=== PATIENT | male | born 1980 | race Caucasian/White ===

== ENCOUNTER 2021-02-24 14:18 | Emergency (ER) | payer MEDICAID, SELFPAY ==
[2021-02-24 15:06] VITALS: BP 172/114; PULSE 92; RESP 18; TEMP 36.7; O2SAT 96; BMI 29.0
--- NOTE | 2021-02-24 15:09 | ECG_ITS ---
Test Reason : DRUG REACTION Blood Pressure : / mmHG Vent. Rate : 084 BPM Atrial Rate : 084 BPM P-R Int : 156 ms QRS Dur : 082 ms QT Int : 344 ms P-R-T Axes : 057 018 036 degrees QTc Int : 406 ms Normal sinus rhythm Moderate voltage criteria for LVH, may be normal variant Borderline ECG When compared with ECG of 01-AUG-2018 10:55, No significant change was found Heart rate has increased Referred By: Generic ED Physician Electronically Signed By:JANE COE MD
[2021-02-24] MEDS: Ibuprofen 600 MG TABLET PO (15:28)
== END 2021-02-24 18:07 | disposition left against medical advice (07) ==
PROVIDERS: Emergency Provider Emergency Medicine; PCP Family Medicine
DX: R51.9 Headache, unspecified (principal); F41.9 Anxiety disorder, unspecified; R52 Pain, unspecified
CPT/HCPCS: 93005; 99283

== ENCOUNTER 2021-03-04 04:43 | Emergency (ER) | payer MEDICAID, SELFPAY ==
--- NOTE | ~2021-03-04 | XR_ITS ---
EXAMINATION: XR RIGHT HAND: 3 VIEWS CLINICAL INFORMATION: Pain COMPARISON: None FINDINGS: No acute fracture or dislocation. Osseous alignment maintained. Joint spaces and articular surfaces are preserved. Soft tissue swelling present dorsal to the metacarpals. No radiopaque foreign body. XR/XR hand wrist RT IMPRESSION: No acute fracture or dislocation.
[2021-03-04 04:56] VITALS: BP 134/99; BP 181/118; PULSE 82; PULSE 86; RESP 18; TEMP 37.1; O2SAT 98; BMI 27.7
--- NOTE | 2021-03-04 06:03 | ED_ITS ---
HPI - General Adult General Chief complaint: General Medical Stated complaint: arm and hand pain Time Seen by Provider: 03/04/21 06:03 Source: patient Mode of arrival: EMS History of Present Illness HPI narrative: 40-year-old male with history of OCD and states having 1 week of right hand pain that he states is better with both ice and heat but typically he wakes up with significant pain at night or sometimes in the morning. He denies any associated fever, chills, trauma and says that he did follow-up with his primary care provider who referred him to a neurologist and that neurologist did not feel that there were any acute problems. This is all per the patient. In addition, patient states that this happened approximately 1 year ago and that he followed up at neurology here at [facility] [place] and was started on Ativan. Patient describes some numbness and tingling and to right index and middle fingers and was wondering if there might be the possibility carpal tunnel. Related Data Previous Rx's Medication Instructions Recorded ketorolac 10 mg tablet 10 mg PO Q6H PRN 5 Days #20 tab 03/04/21 Allergies Allergy/AdvReac Type Severity Reaction Status Date / Time haloperidol [From HALDOL] Allergy Severe RESP Verified 02/24/21 15:05 DISTRESS Phenothiazines Allergy Unknown EPS Verified 02/24/21 15:05 [PHENOTHIAZINES] propofol Allergy Unknown Verified 02/24/21 15:05 Review of Systems Review of Systems: Pertinent positives and negatives as stated in HPI 10 point review of systems is otherwise negative. PMFSH Past Medical History Source: nursing notes reviewed Social History Social History Advance Directives: No Advance Directives Information Provided: No Physical Exam Vital Signs: Vital Signs: Last Vital Signs Temp 98.7 F 03/04/21 04:56 Pulse 82 03/04/21 04:56 Resp 18 03/04/21 04:56 BP 181/118 H 03/04/21 04:56 Pulse Ox 98 03/04/21 04:56 Body Mass Index 27.7 VITAL SIGNS: Reviewed. GENERAL: Well developed, well nourished, in no acute distress. HEAD: Normocephalic/atraumatic, EYES: PERRLA, EOMI OROPHARYNX: no oral lesions noted, posterior pharynx clear LUNGS: Normal breath sounds. No adventitious sounds or accessory muscle use. SpO2<98> CARDIOVASCULAR: Regular rate and rhythm without noted murmurs ABDOMEN: Soft, non-tender, non-distended with bowel sounds. RIGHT HAND/WRIST: No deformities, no pain on palpation, capillary refill less than 3 seconds, palpable radial/ulnar pulses, sensation is intact, pain is intensified with tapping on the carpal compartment NEUROLOGIC: Alert and oriented x 4. PSYCH: Anxious Course Course Course Narrative: This is a 40-year-old male with history and clinical presentation suggestive of possible carpal tunnel. Review of all investigations is otherwise negative for acute findings and on reassessment patient reports significant improvement in pain with the combination analgesics that he was provided. Discharge Plan Discharge Clinical Impression: Neuropathic pain of right hand Patient Disposition: Home, Self-Care Instructions: Peripheral Neuropathy (ED), Paresthesia (ED) Additional Instructions: 1. Please resume all home medications as prescribed. 2. Please follow-up with your primary care provider for re-evaluation and further outpatient management. 3. Recommend using a splint at night for possible carpal tunnel. Return to the ER for acute worsening of symptoms. Prescriptions: New ketorolac 10 mg tablet 10 mg PO Q6H PRN (Reason: pain) 5 Days Qty: 20 RF: 0 Referrals: Raul Mendes DO [Primary Care Provider] - 2 days (Suspect patient may have carpal tunnel, recommended night splinting and Toradol)
[2021-03-04] MEDS: Acetaminophen 325 MG TABLET 975 MG PO (06:17)
[2021-03-04] MEDS: Ketorolac Tromethamine 15 MG/ML VIAL IM (06:18)
[2021-03-04 07:39] VITALS: BP 173/106; PULSE 74; RESP 18; TEMP 36.4; O2SAT 95
== END 2021-03-04 08:36 | disposition home or self-care (01) ==
PROVIDERS: Emergency Provider Student in an Organized Health Care Education/Training Program; PCP Family Medicine
DX: G62.9 Polyneuropathy, unspecified (principal); M79.641 Pain in right hand; Z79.899 Other long term (current) drug therapy
CPT/HCPCS: 73110; 73130; 96372; 99284; J1885

== ENCOUNTER 2021-12-01 07:16 | Outpatient (REF) | payer MEDICAID, SELFPAY ==
--- NOTE | ~2021-12-01 | MR_ITS ---
EXAMINATION: MR CERVICAL SPINE WITHOUT CONTRAST CLINICAL INFORMATION: Right-sided neck tenderness. Decreased range of motion in the left shoulder. Left upper extremity weakness. Bilateral finger numbness or weakness. Radiculopathy. COMPARISON: None. TECHNIQUE: MRI of the cervical spine was obtained using routine sequences without contrast. FINDINGS: VERTEBRAL BODIES AND PARASPINAL SOFT TISSUES: Reversal of the normal cervical lordosis which may be positional or related to muscular spasm. Minimal grade 1 retrolisthesis of C5 on C6 and C6 and C7. No acute fracture. No loss of vertebral body height. Loss of intervertebral disc height with disc desiccation, most prominent at C5-C6 and C6-C7 where there are mild degenerative endplate changes. No marrow edema to suggest acute osseous injury. No concerning lytic or blastic osseous lesion. Increase intrasubstance T2 signal within the cord at the level of C5-C6 consistent with focal myelomalacia. No additional abnormal cord signal. The visualized paraspinal soft tissues are unremarkable. No abnormal soft tissue mass or fluid collection. CERVICOMEDULLARY JUNCTION AND VISUALIZED POSTERIOR FOSSA: Unremarkable. SPINAL LEVELS: C2-C3: No significant disc bulge. Bilateral facet arthropathy. No central canal or neural foraminal stenosis. C3-C4: Shallow disc osteophyte complex which nearly completely effaces the ventral thecal sac. Bilateral facet arthropathy and uncinate spurring with mild bilateral neural foraminal stenosis. C4-C5: Shallow disc osteophyte complex which effaces the ventral thecal sac. Bilateral facet arthropathy and uncinate spurring, right greater than left. Mild bilateral neural foraminal stenosis. C5-C6: Broad-based disc bulge which completely effaces the ventral thecal sac and indents adjacent cord. Focal abnormal cord signal centrally consistent with myomalacia. Bilateral facet arthropathy and uncinate spurring causing severe bilateral neural foraminal stenosis. C6-C7: Broad-based disc bulge which completely effaces the ventral thecal sac and minimally indents adjacent cord. Bilateral facet arthropathy and uncinate spurring causing severe bilateral neural foraminal stenosis, right greater than left. C7-T1: No significant disc bulge. Bilateral facet arthropathy. No central canal or neural foraminal stenosis. MR/MR cervical spine wo con IMPRESSION: 1. Reversal of normal cervical lordosis which may be positional or related to muscle spasm. Grade 1 retrolisthesis of C5 on C6 and C6 and C7. No acute fracture or subluxation. 2. Broad-based disc bulge at C5-C6 which completely effaces the ventral thecal sac and indents adjacent cord. Focal myelomalacia within the adjacent cord. Bilateral facet arthropathy and uncinate spurring causing severe bilateral neural foraminal stenosis. 3. Broad-based disc bulge at C6-C7 which completely effaces the ventral thecal sac and minimally indents adjacent cord without abnormal cord signal. Bilateral facet arthropathy and uncinate spurring causing severe bilateral neural foraminal stenosis, right greater than left. 4. Additional disc bulges and stenosis as above.
== END 2021-12-01 07:17 | disposition home or self-care (01) ==
LOC: HO.MRI 07:16
PROVIDERS: Visit Provider Psychiatry & Neurology Neurology
DX: M54.12 Radiculopathy, cervical region (principal)
CPT/HCPCS: 72141

== ENCOUNTER 2021-12-11 17:50 | Emergency (ER) | payer MEDICAID, SELFPAY ==
[2021-12-11 18:12] VITALS: BP 184/99; PULSE 85; RESP 20; O2SAT 97; BMI 23.7
--- NOTE | 2021-12-11 21:37 | ED_ITS ---
HPI - Back Pain/Injury General Chief Complaint: Back Pain/Injury Stated Complaint: Neck Pain ?Myelopathy Pt ld [place] Time Seen by Provider: 12/11/21 18:58 Related Data Previous Rx's Medication Instructions Recorded ketorolac 10 mg tablet 10 mg PO Q6H PRN pain 5 days #20 03/04/21 tabs cyclobenzaprine 10 mg tablet 10 mg PO TID PRN muscle pain or 12/11/21 spasm #30 tabs Allergies Allergy/AdvReac Type Severity Reaction Status Date / Time haloperidol [From HALDOL] Allergy Severe RESP Verified 02/24/21 15:05 DISTRESS Phenothiazines Allergy Unknown EPS Verified 02/24/21 15:05 [PHENOTHIAZINES] propofol Allergy Unknown Verified 02/24/21 15:05 [facility] Social History Social History Advance Directives: No Advance Directives Information Provided: No Physical Exam Vital Signs: Vital Signs: Last Vital Signs Pulse 85 12/11/21 18:12 Resp 20 12/11/21 18:12 BP 184/99 H 12/11/21 18:12 Pulse Ox 97 12/11/21 18:12 O2 Del Method 12/11/21 18:12 BMI result Body Mass Index 23.7 Discharge Plan Discharge Clinical Impression: Acute neck pain, Muscle spasms of neck Patient Disposition: Home, Self-Care Instructions: Muscle Spasm (ED), Acute Neck Pain (ED) Additional Instructions: I did review your MRI on 12/01/2021 and have 2 bulging discs at C5 and C6 and at C6 and C7 At this time, your neurologic exam was normal with good strength and no numbness in your arms which is very reassuring. The neck pain that you are experiencing may or may not be related to the bulging discs in your neck therefore it is very important that you make that follow-up appointment with your neurosurgeon at [facility] to determine if you need a surgical procedure or if you need to continue to have medical management of your neck pain Continue taking the meloxicam as prescribed and use the lidocaine patches. Take Flexeril (cyclobenzaprine) 10 mg pills, 1 pill every 6-8 hours as needed for pain or spasm. This medication will make you sleepy. Do not drive or work while taking this medication. Follow-up with your doctor in 2 days. Please return to the emergency department if your symptoms get worse or if you develop any symptoms that are concerning to you. I sent your prescription to the [facility] on [address] in [place]. This is a 24 hour pharmacy. Prescriptions: New cyclobenzaprine 10 mg tablet 10 mg PO TID PRN (Reason: muscle pain or spasm) Qty: 30 0RF No Action ketorolac 10 mg tablet 10 mg PO Q6H PRN (Reason: pain) 5 Days Qty: 20 0RF
== END 2021-12-11 22:13 | disposition home or self-care (01) ==
PROVIDERS: Emergency Provider Emergency Medicine Emergency Medical Services
DX: M54.2 Cervicalgia (principal); M62.838 Other muscle spasm; Z79.899 Other long term (current) drug therapy
CPT/HCPCS: 99282

== ENCOUNTER 2021-12-13 13:15 | Emergency (ER) | payer MEDICAID, SELFPAY | END 2021-12-13 15:10 | disposition left against medical advice (07) | PROVIDERS: Emergency Provider Emergency Medicine; PCP Pediatrics | DX: R53.1 Weakness (principal); R20.0 Anesthesia of skin ==

== ENCOUNTER 2022-02-09 05:18 | Emergency (ER) | payer MEDICAID, SELFPAY ==
[2022-02-09 05:31] VITALS: BP 127/84; PULSE 94; RESP 21; TEMP 36.4; O2SAT 98; BMI 27.0
--- NOTE | 2022-02-09 06:36 | ED_ITS ---
HPI - General Adult General Chief complaint: General Medical Stated complaint: leg pain Time Seen by Provider: 02/09/22 06:36 History of Present Illness HPI narrative: 41-year-old male presents today with having pain to the right leg that is been ongoing for 3 months. Patient claims it is worse with the exercise. There is no gross swelling. There is no history of blood clots. There is no chest pain has no shortness of breath. There is no nausea no vomiting. Patient claims the pain is excruciating at times. Patient denies any trauma. Attempted to take some Motrin with only moderate relief. Feels the calf is kind of tight. Patient also worried that the arch of his foot is painful. Related Data Previous Rx's Medication Instructions Recorded ketorolac 10 mg tablet 10 mg PO Q6H PRN pain 5 days #20 03/04/21 tabs cyclobenzaprine 10 mg tablet 10 mg PO TID PRN muscle pain or 12/11/21 spasm #30 tabs Allergies Allergy/AdvReac Type Severity Reaction Status Date / Time haloperidol [From HALDOL] Allergy Severe RESP Verified 02/24/21 15:05 DISTRESS Phenothiazines Allergy Unknown EPS Verified 02/24/21 15:05 [PHENOTHIAZINES] propofol Allergy Unknown Verified 02/24/21 15:05 Review of Systems Review of Systems: No fever no chills no chest pain or shortness breath no nausea no vomiting Yes all other systems are reviewed and are negative [facility] Past Medical History Attestation statement: The following information was validated with the patient. Social History Social History Advance Directives: No Physical Exam ED Vital Signs: Vital Signs - 24 hr 02/09/22 05:31 Temperature 97.6 F Pulse Rate 94 Respiratory Rate 21 H Blood Pressure 127/84 Pulse Oximetry 98 Oxygen Delivery Method Room Air BMI result Body Mass Index 27.0 Appearance: Alert. Oriented X3. No acute distress. Eyes: Pupils equal, round and reactive to light. ENT: Pharynx normal. Neck: Normal inspection. Neck supple. No lymph nodes noted. No crepitus CVS: Normal heart rate and rhythm. Pulses normal. Normal S1 and S2 Respiratory: No respiratory distress. Breath sounds normal. No Wheezing. No rales Abdomen: Soft and nontender. No rigidity. No distention. good BS x4 Skin: Skin warm and dry. Normal skin color. Normal skin turgor. Extremities: No lower extremity edema. Neurovascular intact to all extremities. No Lacerations. No Rash. Exam of the right lower extremity showed capsized are equal bilaterally at 10 cm below the tibial tuberosity. Pulse 2 +at dorsalis pedis. Sensation intact. There is no gross calf tenderness elicited on palpation. Negative Homans sign. Patient ambulate with a normal gait. Skin intact. Neuro: Oriented X 3. No motor deficit. No sensory deficit. Moving all extermities. No slurred speech Medical Decision Making MDM Narrative Medical decision making narrative: Patient claims he had a history of rhabdo. Lab test ordered as patient exercises vigorously. Doppler offered to rule out the possibility of DVT. Although we think the risk is low given patient has no travel history has no history of blood clots has no chest pain shortness of breath. Calf size approximately the same there is no calf tenderness on palpation. Patient is leaving against medical advice as he does not wish any additional blood work or ultrasound. Discharge Plan Discharge Clinical Impression: Cramp in lower leg, Plantar fasciitis Patient Disposition: Home, Self-Care Instructions: Leg Cramps (ED), Plantar Fasciitis (ED) Prescriptions: No Action cyclobenzaprine 10 mg tablet 10 mg PO TID PRN (Reason: muscle pain or spasm) Qty: 30 0RF ketorolac 10 mg tablet 10 mg PO Q6H PRN (Reason: pain) 5 Days Qty: 20 0RF Referrals: Physician,Unknown J [Primary Care Provider] - (Please follow-up with your primary physician on an outpatient basis. Small risk of blood clots exists. Small risk of rhabdo exists.) Stand Alone Forms: Against Medical Advice
== END 2022-02-09 07:04 | disposition home or self-care (01) ==
PROVIDERS: Emergency Provider Emergency Medicine Emergency Medical Services
DX: M72.2 Plantar fascial fibromatosis (principal); M79.661 Pain in right lower leg; R25.2 Cramp and spasm; Z79.899 Other long term (current) drug therapy
CPT/HCPCS: 99282

== ENCOUNTER 2022-05-30 10:44 | Emergency (ER) | payer MEDICAID, SELFPAY ==
--- NOTE | ~2022-05-30 | CT_ITS ---
EXAMINATION: CT HEAD WITHOUT CONTRAST CT FACIAL BONES WITHOUT CONTRAST CLINICAL INFORMATION: Left orbital pain. Nasal deformity. Loss of consciousness. Positive EtOH. COMPARISON: CT head from 06/08/2019. TECHNIQUE: Imaging was performed from the skull base to vertex without intravenous administration of contrast. In addition, helical noncontrast CT imaging was acquired through the facial bones and source images were reviewed along with axial reconstructions and sagittal and coronal MPRs. This CT examination was performed using dose optimization techniques as appropriate, variously including the following: *Automated exposure control. *Adjustment of mA and/or kV according to patient size (this includes techniques or standardized protocols for targeted exams where dose is matched to indication/reason for exam; i.e. extremities or head). *Use of iterative reconstruction technique. DLP: 1125 mGy-cm FINDINGS: Head: There is no evidence of acute intracranial hemorrhage or edematous territorial infarction. Amaya-white matter differentiation is preserved. There is no abnormal attenuation within the brain parenchyma. Small developmental venous anomaly within the anterior parasagittal left frontal lobe. The ventricles are normal in morphology and size. No evidence for obstructive hydrocephalus. No abnormal mass effect or midline shift. No extra-axial fluid collections. There is a laceration along the left supraorbital ridge along with mild subcutaneous edema/hematoma along the left aspect of the frontal bone and left preseptal periorbital soft tissues. No radiopaque foreign bodies. No associated acute osseous abnormalities. Maxillofacial Bones: No overt evidence of maxillofacial bone fractures. The zygomatic arches remain intact. No nasal bone fracture. Mild rightward nasal septal deviation. Mild irregularity of the maxillary spine without demonstrated overt fracture. Otherwise, no evidence of mandibular or maxillary fracture. The mandibular condyles remain well-seated in their respective temporal articular grooves. Normal appearance of the intraconal and extraconal fat. No evidence of traumatic injury to the extraocular musculature or globes. Mild mucosal thickening of the paranasal sinuses. The mastoid air cells and middle ear cavities are clear. No layering fluid collections. CT/CT facial bones wo IV con IMPRESSION: 1. No evidence of acute intracranial hemorrhage or edematous territorial infarction. 2. Laceration along the left supraorbital ridge along with mild subcutaneous edema/hematoma along the left frontal scalp and left periorbital region. No associated osseous, globe, retrobulbar abnormalities. 3. Mild irregularity of the maxillary spine without demonstrated overt fracture. Recommend correlation with point tenderness. 4. Otherwise, no overt evidence of acute fracture of the maxillofacial bones.
[2022-05-30 10:49] VITALS: BP 129/82; PULSE 84; RESP 19; TEMP 36.6; O2SAT 98; BMI 25.7
--- NOTE | 2022-05-30 11:10 | ED.FALL ---
HPI - Fall General Chief Complaint: Wound/Laceration Stated Complaint: Fall/EYE brow lac Time Seen by Provider: 05/30/22 10:51 Source: patient Mode of arrival: ambulatory Limitations: no limitations History of Present Illness HPI Narrative: Patient is a 41-year-old male presents emergency department for evaluation after a fall. He reports at approximately 23:00 last night he was in the shower when he fell, striking his face on to a shower fixture sustaining a laceration above the left brow. When asked why he fell he states he does not know. When asked he does the mid to drinking ?a few beers? prior to this. Denies any known LOC. Patient is a vague historian regarding the events. When asked why he did not come in afterwards he does not provide a clear answer. Complaining of pain to the left orbit and a diffuse headache. Denies neck pain, vision changes. Denies any numbness or tingling of extremities. Is ambulatory with a steady gait. Related Data Previous Rx's Medication Instructions Recorded ketorolac 10 mg tablet 10 mg PO Q6H PRN pain 5 days #20 03/04/21 tabs cyclobenzaprine 10 mg tablet 10 mg PO TID PRN muscle pain or 12/11/21 spasm #30 tabs Allergies Allergy/AdvReac Type Severity Reaction Status Date / Time haloperidol [From HALDOL] Allergy Severe RESP Verified 02/24/21 15:05 DISTRESS Phenothiazines Allergy Unknown EPS Verified 02/24/21 15:05 [PHENOTHIAZINES] propofol Allergy Unknown Verified 02/24/21 15:05 Review of Systems Review of Systems: Constitutional : No Fever, No Chills, No Fatigue ENT/Mouth : No sore throat, No Rhinorrhea, positive nasal deformity Eyes: Positive Left orbit pain, swelling, bruising. Positive linear laceration superior to left brow. Cardiovascular : No Chest Pain, No SOB, No Dyspnea on Exertion Respiratory : No Cough, No Sputum Gastrointestinal : No Nausea, No Vomiting, No Diarrhea, No abdominal Pain Genitourinary : No Dysuria, No Urinary Frequency, No Hematuria, Musculoskeletal : No joint pain, No Myalgias, No Joint Swelling Skin : No Skin Lesions, No rash Neuro : No Weakness, No Numbness, No Dizziness, positive Headache Psych : No Anxiety/Panic, No Depression Heme/Lymph: No Bruising, No Bleeding,No Lymphadenopathy Endocrine : No Polyuria, No Polydipsia Yes all other systems are reviewed and are negative [facility] Past Medical History Attestation statement: The following information was validated with the patient. Source: old records reviewed Social History Social History Advance Directives: No Advance Directives Information Provided: Yes Physical Exam Vital Signs: Vital Signs: Last Vital Signs Temp 98 F 05/30/22 10:49 Pulse 84 05/30/22 10:49 Resp 19 05/30/22 10:49 BP 129/82 05/30/22 10:49 Pulse Ox 98 05/30/22 10:49 O2 Del Method 05/30/22 10:49 BMI result Body Mass Index 25.7 Appearance: Alert.?Oriented to person, place and time. No acute distress.?Normal affect. Head: Normocephalic Eyes: Pupils equal, round and reactive to light. EOMI. Conjunctiva and sclera normal? No Mistry sign noted. Positive bruising and swelling to left orbit. Tenderness upon palpation the superior orbit. 4 cm linear laceration above the left brow. ENT: No septal hematoma, nares patent bilaterally. External auditory canal normal tympanic membrane pearly warren and intact bilaterally. Dentition normal, no fractured teeth. No lesions or lacerations of oropharynx. Uvula midline. Moist mucous membranes. Neck: Normal inspection.? Neck supple.??No palpable tenderness, step-off, deformities. CVS: Heart sounds normal. Normal heart rate and rhythm.? Pulses normal.?? Respiratory: No respiratory distress.? Lung sounds clear to auscultation bilaterally?? Abdomen: Soft and non-tender. Normoactive bowel sounds. ?? Skin: Skin warm and dry.? Normal skin color.? Extremities: No lower extremity edema.? Neuro: Moves all extremities spontaneously. Sensation intact bilaterally. CN II-XII intact. No focal neuro deficits. Course Reevaluation(s) Reevaluation #1: Patient at this time is requesting to leave against medical advice. Patient advised that he should await official reading of CT reports from Radiology. He declines stay at this time. His conscious alert and oriented x4. Ambulatory with a steady gait. No focal neurological deficits. Discussed potential risks associated with leaving, including life-threatening injuries, patient verbalizes understanding of this. Advised he will need to have the sutures removed in 5-7 days. Laceration to the left brow was repaired under aseptic technique, 5 sutures were placed as noted procedure section of note, patient tolerated procedure well. Low suspicion for globe rupture upon examination, however he declined having visual acuity testing for fluorescein staining, unable to determine presence of Mario Alberto sign. Tenderness is present over the superior orbit, there is significant swelling and bruising, unable to palpate any step-offs, no restricted gaze. Patient advised that he should return with any new or worsening symptoms or concerns. Time: 13:41 Reevaluation #2: Although patient left against medical advice, reviewed CT imaging; no evidence of intracranial hemorrhage or infarct. No apparent osseous, globe, or retrobulbar abnormalities are present, no overt fracture of the maxillofacial bones. Time: 16:36 Medications Administered Discontinued Medications Generic Name Dose Route Start Last Admin Trade Name Freq PRN Reason Stop Dose Admin Lidocaine HCl 5 ml 05/30/22 12:23 05/30/22 13:49 Lidocaine Hcl 2 % Mpf 5 Ml Vial SUBCUT 05/30/22 12:24 Not Given ONCE ONE Lidocaine HCl 5 ml 05/30/22 12:45 05/30/22 13:49 Lidocaine Hcl 2% 2 Ml Vial SUBCUT 05/30/22 12:46 5 ml ONCE ONE Administration Procedures Laceration Laceration 1: Site: face Side (If applicable): left Size (cm): 4 Description: linear Depth: simple, single layer Local Anesthetic: lidocaine 2% Amount of anesthesia used (mL): 4 Pre-repair: wound explored, irrigated extensively and deep structures intact Skin layer closed with: other (Prolene) Size (cm): 5-0 Number of sutures: 5 Technique: simple, interrupted Medical Decision Making Medical Decision Making MDM Narrative: Patient is a 41-year-old male with no reported past medical history who presents emergency department for evaluation after a fall. Fell last night in the shower under the influence of alcohol, denies known LOC, however he is a vague historian surrounding the events. Sustained a laceration above the left brow that appears deep, minimal active bleeding, dried blood surrounding. Tenderness upon palpation over the superior left orbit and nasal bridge. Does not appear consistent with globe rupture, pupil was normal, no hyphema, no laceration to the lid, Plan to obtain CT of the head and facial bones to evaluate for fracture, ICH/SAH. No septal hematoma is present, and nares are patent bilaterally. Will require suture repair for the laceration. Differential Diagnosis Differential Diagnoses: The differential diagnosis associated with the presentation includes (As noted above) Radiology Impression Discussion of test interpretation with radiology: I have reviewed the radiologist's reading. Radiologist Impression: CT/CT facial bones wo IV con IMPRESSION: 1.? No evidence of acute intracranial hemorrhage or edematous territorial infarction. 2.? Laceration along the left supraorbital ridge along with mild subcutaneous edema/hematoma along the left frontal scalp and left periorbital region. No associated osseous, globe, retrobulbar abnormalities. 3.? Mild irregularity of the maxillary spine without demonstrated overt fracture. Recommend correlation with point tenderness. 4.? Otherwise, no overt evidence of acute fracture of the maxillofacial bones. ? Discharge Plan Discharge Clinical Impression: Fall, Laceration, Contusion of left orbit Patient Disposition: Left Against Medical Advice Additional Instructions: It was recommended that you remain in the emergency department until the CT scans of your facial bones and head were interpreted however you declined. Your leaving against medical advice. You should return back to emergency department with any new or worsening symptoms or concerns. This includes but is not limited to confusion, persistent or severe headache, dizziness, lightheadedness, vision changes, neck pain, neck stiffness. The 5 stitches placed your left brow will need to be removed in 5-7 days. If you develop redness, swelling, pus-like drainage this should be re-evaluated for infection Prescriptions: No Action cyclobenzaprine 10 mg tablet 10 mg PO TID PRN (Reason: muscle pain or spasm) Qty: 30 0RF ketorolac 10 mg tablet 10 mg PO Q6H PRN (Reason: pain) 5 Days Qty: 20 0RF Referrals: Juan Miguel Day DO [Primary Care Provider] - Interventions: ED Discharge Assessment Last Done: 05/30/22 13:47 Discharge Date/Time: 05/30/22 13:48
--- NOTE | 2022-05-30 12:08 | PC.NURSE ---
left eyebrow laceration cleansed with NS, hydrogen peroxide was use to loosen hardened clots, 1 3/4 in laceration visualized granulating wound bed. pt tolerated procedure well. awaiting imaging results, call hitchcock within reach
== END 2022-05-30 13:48 | disposition left against medical advice (07) ==
PROVIDERS: Emergency Provider Student in an Organized Health Care Education/Training Program; PCP Pediatrics
DX: S01.112A Laceration without foreign body of left eyelid and periocular area, initial encounter (principal); S05.12XA Contusion of eyeball and orbital tissues, left eye, initial encounter; W18.2XXA Fall in (into) shower or empty bathtub, initial encounter; Y93.E1 Activity, personal bathing and showering; Y92.012 Bathroom of single-family (private) house as the place of occurrence of the external cause; Y99.9 Unspecified external cause status
CPT/HCPCS: 12013; 70450; 70486; 99282; 99284

== ENCOUNTER 2022-05-31 11:43 | Emergency (ER) | payer MEDICAID, SELFPAY ==
[2022-05-31 12:13] VITALS: BP 125/80; PULSE 88; RESP 18; TEMP 36.5; O2SAT 97; BMI 25.7
--- NOTE | 2022-05-31 12:16 | ED_ITS ---
HPI - General Adult General Chief complaint: General Medical Stated complaint: returning from yesterday for scan Time Seen by Provider: 05/31/22 12:14 Source: patient, family and old records reviewed Mode of arrival: ambulatory Limitations: no limitations History of Present Illness HPI narrative: 41 yo male with history of alcohol abuse presents to the ER for evaluation of a slip and fall in the shower while intoxicated the night before last. He required suture repair of a laceration over his left eye. He had CT scans of his head and facial bones bed bleeding against medical advice before the CT scans were resulted. He presents back to the ER today with his parents with complaints of ongoing headache and ?feeling weird. ? He would like to know the results of his CT scan. He denies any vomiting, lethargy, confusion. MD complaint: Headache status post fall Onset (ago): day(s) (2) Location: head and face Radiation: non-radiation Severity: moderate Quality: aching Pain Consistency: intermittent Relieving factors: none Exacerbating factors: none Associated symptoms: denies other symptoms Treatments prior to arrival: none Related Data Previous Rx's Medication Instructions Recorded ketorolac 10 mg tablet 10 mg PO Q6H PRN pain 5 days #20 03/04/21 tabs cyclobenzaprine 10 mg tablet 10 mg PO TID PRN muscle pain or 12/11/21 spasm #30 tabs Allergies Allergy/AdvReac Type Severity Reaction Status Date / Time haloperidol [From HALDOL] Allergy Severe RESP Verified 02/24/21 15:05 DISTRESS Phenothiazines Allergy Unknown EPS Verified 02/24/21 15:05 [PHENOTHIAZINES] propofol Allergy Unknown Verified 02/24/21 15:05 Review of Systems Review of Systems: Yes all other systems are reviewed and are negative [facility] Social History Social History Advance Directives: No Advance Directives Information Provided: No Physical Exam ED Vital Signs: Vital Signs - 24 hr 05/31/22 12:13 Temperature 97.7 F Pulse Rate 88 Respiratory Rate 18 Blood Pressure 125/80 Pulse Oximetry 97 Oxygen Delivery Method Room Air BMI result Body Mass Index 25.7 Appearance: Alert. Oriented X3. No acute distress. HEENT: Face with multiple superficial abrasions, areas of ecchymosis involving the left periorbital area, there is a laceration over the superior left orbit sutured closed with good wound margin approximation. EOMI. CVS: Normal heart rate and rhythm. Pulses normal. Respiratory: No respiratory distress. Skin: Skin warm and dry. Normal skin color. Normal skin turgor. No rashes. Extremities: Atraumatic x4 Neuro: Oriented X 3. No motor deficit. No sensory deficit. Steady gait Course Course Course Narrative: 41-year-old male who fell down while intoxicated in the shower presents to the ER for evaluation of headaches and to get the results of his CT scan that were done yesterday. He left against medical advice before the results were in yesterday. He has no concerning signs or symptoms. He most likely suffered a mild concussion. His CT scans were reviewed with the patient and his parents. There was no overt fracture or bleeding. He was counseled on diagnosis and management of mild concussion and encouraged follow-up with his primary care doctor. Patient agrees with plan stable for discharge home Medical Decision Making Differential Diagnosis Differential Diagnoses: The differential diagnosis associated with the presentation includes concussion, head injury, contusion, facial bone fracture, ICH Radiology Impression Discussion of test interpretation with radiology: I have reviewed the radiologist's reading. Radiologist Impression: IMPRESSION: 1.? No evidence of acute intracranial hemorrhage or edematous territorial infarction. 2.? Laceration along the left supraorbital ridge along with mild subcutaneous edema/hematoma along the left frontal scalp and left periorbital region. No associated osseous, globe, retrobulbar abnormalities. 3.? Mild irregularity of the maxillary spine without demonstrated overt fracture. Recommend correlation with point tenderness. 4.? Otherwise, no overt evidence of acute fracture of the maxillofacial bones. Independent Historian Clinical information obtained from an independent historian. History obtained from or confirmed by: Parent External Record Review External record reviewed: Outpatient record Prescription Management I considered prescription management with: Pain Medication not indicated at this time - tylenol and motrin recommended Critical Care Time Critical Care Time Critical Care Time: No Discharge Plan Discharge Clinical Impression: Head injury Patient Disposition: Home, Self-Care Instructions: Head Injury (ED) Additional Instructions: CT scan results were reviewed. There was no fractures or bleeding in the brain. Rest and take tylenol and/or motrin as needed for headaches. Drink plenty of fluids. Do not drink alcohol. Follow up with your primary care doctor. Prescriptions: No Action cyclobenzaprine 10 mg tablet 10 mg PO TID PRN (Reason: muscle pain or spasm) Qty: 30 0RF ketorolac 10 mg tablet 10 mg PO Q6H PRN (Reason: pain) 5 Days Qty: 20 0RF Interventions: ED Discharge Assessment Last Done: 05/31/22 12:19 Discharge Date/Time: 05/31/22 12:21
== END 2022-05-31 12:21 | disposition home or self-care (01) ==
LOC: HO.ED 12:20
PROVIDERS: Emergency Provider Student in an Organized Health Care Education/Training Program; PCP Pediatrics
DX: R51.9 Headache, unspecified (principal); Z79.899 Other long term (current) drug therapy
CPT/HCPCS: 99282

== ENCOUNTER 2022-09-06 11:17 | Emergency (ER) | payer OTHER, SELFPAY ==
[2022-09-06 11:31] VITALS: BP 106/87; PULSE 93; RESP 18; TEMP 36.5; O2SAT 95; BMI 26.4
--- NOTE | 2022-09-06 11:32 | ED.BACK ---
HPI - Back Pain/Injury General Chief Complaint: Back Pain/Injury <Vicki De NP - Last Filed: 09/06/22 11:54> Stated Complaint: back pain <Vicki De NP - Last Filed: 09/06/22 11:54> Time Seen by Provider: 09/06/22 12:23 <Vicki De NP - Last Filed: 09/06/22 11:54> History of Present Illness HPI Narrative: Patient complains of back pain worse with certain movements after gardening yesterday, he does have chronic back pain Denies weakness, loss of sensation, fever, he denies any IV drug use he denies any changes to bowel or bladder no incontinence no dysuria no frequency <HEYDI Yeager - Last Filed: 09/06/22 12:46> Related Data Home Medications: Previous Rx's Medication Instructions Recorded ketorolac 10 mg tablet 10 mg PO Q6H PRN pain 5 days #20 03/04/21 tabs cyclobenzaprine 10 mg tablet 10 mg PO TID PRN muscle pain or 12/11/21 spasm #30 tabs cyclobenzaprine 5 mg tablet 5 mg PO TID PRN muscle spasm #10 09/06/22 tabs ibuprofen 600 mg tablet 600 mg PO Q6H PRN pain #20 tabs 09/06/22 lidocaine 5 % topical patch 1 patch topical DAILY Back pain 09/06/22 #15 ea <Vicki De NP - Last Filed: 09/06/22 11:54> Allergies/Adverse Reactions: Allergies Allergy/AdvReac Type Severity Reaction Status Date / Time haloperidol [From HALDOL] Allergy Severe RESP Verified 09/06/22 11:39 DISTRESS Phenothiazines Allergy Unknown EPS Verified 09/06/22 11:39 [PHENOTHIAZINES] propofol Allergy Unknown Verified 09/06/22 11:39 <Vicki De NP - Last Filed: 09/06/22 11:54> PMFSH Past Medical History Source: nursing notes reviewed <HEYDI Yeager - Last Filed: 09/06/22 12:46> Social History Social History: Social History Alcohol intake: never Smoked in Last 30 Days: No Use of substances other than those prescribed or required for medical reasons: No Advance Directives: No Advance Directives Information Provided: No <Vicki De NP - Last Filed: 09/06/22 11:54> Physical Exam Vital Signs: Vital Signs: Last Vital Signs Temp 97.7 F 09/06/22 11:31 Pulse 93 09/06/22 11:31 Resp 18 09/06/22 11:31 BP 106/87 09/06/22 11:31 Pulse Ox 95 09/06/22 11:31 O2 Del Method Room Air 09/06/22 11:31 BMI result Body Mass Index 26.4 <Vicki De NP - Last Filed: 09/06/22 11:54> Vital Signs: Last Vital Signs Temp 97.7 F 09/06/22 11:31 Pulse 93 09/06/22 11:31 Resp 18 09/06/22 11:31 BP 106/87 09/06/22 11:31 Pulse Ox 95 09/06/22 11:31 O2 Del Method Room Air 09/06/22 11:31 BMI result Body Mass Index 26.4 <HEYDI Yeager - Last Filed: 09/06/22 12:46> General appearance no acute distress Head is normocephalic atraumatic Neck is supple Chest is clear to auscultation bilateral with full symmetric equal breath sounds no chest wall tenderness Heart no murmur auscultated Abdomen soft nontender The back had bilateral paraspinal lower lumbar tenderness with some spasm Skin of the back was normal no rash no redness no warmth Extremities full range of motion x4 Neuro no focal motor sensory deficits, gait and balance are normal <HEYDI Yeager - Last Filed: 09/06/22 12:46> Course Course Course Narrative: This is a rapid medical exam. Deferred additional HPI, ROS, PE to primary provider. 41 yo male with history of anxiety, HTN, chronic back and neck pain here with acute on chronic back pain which he believes was antagonized by raking in the yard recently. Taking baclofen, naproxen, tylenol with continued pain. HR 182 in triage although palpated hr does not feel quite as fast. Will obtain EKG. +tremor in triage. EKG shows NSR with hr rate 93. <Vicki De NP - Last Filed: 09/06/22 11:54> This is a rapid medical exam. Deferred additional HPI, ROS, PE to primary provider. 41 yo male with history of anxiety, HTN, chronic back and neck pain here with acute on chronic back pain which he believes was antagonized by raking in the yard recently. Taking baclofen, naproxen, tylenol with continued pain. HR 182 in triage although palpated hr does not feel quite as fast. Will obtain EKG. +tremor in triage. EKG shows NSR with hr rate 93. EKG was done in triage because of a likely bad reading on the machine which showed a pulse of 182, but when palpated the provider in triage did felt was much slower, EKG was done which showed a heart rate of 93 He had no complaints related to his heart he had no chest pain no shortness breath no palpitations His complaint of back pain worse with movement after gardening is treated with muscle relaxer and analgesics and well-appearing patient was discharged <HEYDI Yeager - Last Filed: 09/06/22 12:46> Discharge Plan Discharge Clinical Impression: Strain of lumbar region <Vicki De NP - Last Filed: 09/06/22 11:54> Patient Disposition: Home, Self-Care <Vicki De NP - Last Filed: 09/06/22 11:54> Additional Instructions: Follow with primary doctor if back pain continues Return to the ER any time any worse condition or any concerns You likely strained her back while gardening and this should return to baseline in a few days <Vicki De NP - Last Filed: 09/06/22 11:54> Prescriptions: New cyclobenzaprine 5 mg tablet 5 mg PO TID PRN (Reason: muscle spasm) Qty: 10 0RF ibuprofen 600 mg tablet 600 mg PO Q6H PRN (Reason: pain) Qty: 20 0RF lidocaine 5 % adhesive patch,medicated 1 patch topical DAILY Qty: 15 0RF Rx Instructions: leave on most painful area for up to 12 hrs No Action cyclobenzaprine 10 mg tablet 10 mg PO TID PRN (Reason: muscle pain or spasm) Qty: 30 0RF ketorolac 10 mg tablet 10 mg PO Q6H PRN (Reason: pain) 5 Days Qty: 20 0RF <Vicki De NP - Last Filed: 09/06/22 11:54>
--- NOTE | 2022-09-06 11:37 | ECG_ITS ---
Test Reason : BACK PAIN Blood Pressure : / mmHG Vent. Rate : 093 BPM Atrial Rate : 093 BPM P-R Int : 136 ms QRS Dur : 082 ms QT Int : 338 ms P-R-T Axes : 041 017 036 degrees QTc Int : 420 ms Normal sinus rhythm Possible Left atrial enlargement Borderline ECG When compared with ECG of 24-FEB-2021 15:17, No significant change was found Referred By: Vicki De Electronically Signed By:KANIKA DUNBAR
[2022-09-06 12:44] VITALS: BP 117/65; PULSE 94; RESP 16; O2SAT 95
== END 2022-09-06 12:48 | disposition home or self-care (01) ==
PROVIDERS: Emergency Provider Emergency Medicine Emergency Medical Services; PCP Pediatrics
DX: M54.50 Low back pain, unspecified (principal); R94.31 Abnormal electrocardiogram [ECG] [EKG]; Z79.899 Other long term (current) drug therapy
CPT/HCPCS: 93005; 99283; 99284

== ENCOUNTER 2023-07-14 03:01 | Emergency (ER) | payer OTHER, SELFPAY ==
[2023-07-14 03:05] VITALS: BP 141/97; PULSE 79; RESP 16; TEMP 36.5; O2SAT 96; BMI 27.9
== END 2023-07-14 04:51 | disposition left against medical advice (07) ==
PROVIDERS: Emergency Provider Emergency Medicine
DX: M25.562 Pain in left knee (principal); M25.561 Pain in right knee; Z53.21 Procedure and treatment not carried out due to patient leaving prior to being seen by health care provider
CPT/HCPCS: 99281

== ENCOUNTER 2023-07-14 07:18 | Emergency (ER) | payer OTHER, SELFPAY ==
[2023-07-14 07:23] VITALS: BP 156/99; PULSE 85; RESP 18; TEMP 36.6; O2SAT 95; BMI 28.0
[2023-07-14 07:46] LABS: IDNOW Serial# 58CA691E; Strep A Nucleic Acid Negative (Negative)
[2023-07-14 08:14] LABS: Influenza A PCR NEGATIVE (Negative); Influenza B PCR NEGATIVE (Negative); Resp Syncy Virus RNA Qual PCR NEGATIVE (Negative); SARS COV2 PCR INHOUSE NEGATIVE (Negative)
[2023-07-14 09:39] LABS: MANUAL DIFF FLAG NO
[2023-07-14 09:41] LABS: Basophils Percent Auto 0.3 % (0-2); Eosinophils Absolute Auto 0.2 X10*3/uL (0.0-0.4); Eosinophils Percent Auto 3.3 % (0-4); Hematocrit 38.8 % (42.0-52.0); Imm Gran Abs Auto 0.02 X10*3/uL (0.00-0.03); Imm Gran Pct Auto 0.3 % (0.0-0.4); Lymphocytes Absolute Auto 1.7 X10*3/uL (1.2-4.9); Lymphocytes Percent Auto 22.7 % (20-40); Mean Corpuscular HGB Conc 36.1 g/dl (31.0-36.0); Mean Corpuscular Hemoglobin 32.4 pg (27.0-33.0); Mean Corpuscular Volume 89.8 fL (80.0-98.0); Mean Platelet Volume 10.2 fL (9.4-12.4); Monocytes Absolute Auto 0.7 X10*3/uL (0.1-1.2); Monocytes Percent Auto 8.9 % (2-11); Neutrophils Absolute Auto 4.7 x10*3/uL (2.0-8.3); Neutrophils Percent Auto 64.5 % (45-73); Platelet Count 172 X10*3/uL (160-400); Red Blood Count 4.32 X10*6/uL (4.60-5.80); White Blood Count 7.3 X10*3/uL (4.8-10.8)
--- NOTE | 2023-07-14 09:42 | ED_ITS ---
HPI - URI/Sore Throat General Chief Complaint: Upper Respiratory Symptoms Stated Complaint: cold like symptoms Time Seen by Provider: 07/14/23 09:06 Source: patient Mode of arrival: ambulatory Limitations: no limitations History of Present Illness HPI Narrative: This is a 42-year-old male who has an underlying history of chronic back and neck pain with associated radiculopathy who presents to the ER with complaints of 3 days of body aches, runny nose, chills, vomiting. Patient reports he went to [facility] and had negative viral testing. Was discharged home but is concerned because he has continued pain and both of his lower extremities. Patient reports he has had pain in both of his lower legs and feet for many months but this has been worsened over the last 3 days. Patient reports a follow-up appointment with his neurologist in 2 days here [facility]. His neurologist is Dr. Cabral. Patient reports he has been taking Motrin and Tylenol with continued symptoms. He describes the pain as pain in both of his lower legs and feet and heels. There is no associated numbness or tingling. There is no associated redness, swelling or known injury or trauma. He has no complaints of cough, chest pain, shortness of breath, fever, sore throat, headache, abdominal pain, diarrhea, skin rash. Related Data Previous Rx's Medication Instructions Recorded ketorolac 10 mg tablet 10 mg PO Q6H PRN pain 5 days #20 03/04/21 tabs cyclobenzaprine 10 mg tablet 10 mg PO TID PRN muscle pain or 12/11/21 spasm #30 tabs cyclobenzaprine 5 mg tablet 5 mg PO TID PRN muscle spasm #10 09/06/22 tabs ibuprofen 600 mg tablet 600 mg PO Q6H PRN pain #20 tabs 09/06/22 lidocaine 5 % topical patch 1 patch topical DAILY Back pain 09/06/22 #15 ea cyclobenzaprine 10 mg tablet 10 mg PO TID PRN muscle spasm #6 07/14/23 tabs diclofenac sodium 1 % topical gel 4 g topical QID #100 grams 07/14/23 (Voltaren Arthritis Pain) Allergies Allergy/AdvReac Type Severity Reaction Status Date / Time haloperidol [From HALDOL] Allergy Severe RESP Verified 07/14/23 07:22 DISTRESS Phenothiazines Allergy Unknown EPS Verified 07/14/23 07:22 [PHENOTHIAZINES] propofol Allergy Unknown Verified 07/14/23 07:22 Review of Systems 2 Review of Systems: Yes all other systems are reviewed and are negative Constitutional: Constitutional: Reports no additional constitutional complaints, Reports body ache(s), Reports chills, Denies fever(s), Denies headache(s) and Denies weakness Eyes: Eyes: Reports no additional eye complaints and Denies change in vision ENT: Reports system reviewed and no additional complaints, except as documented, Denies dizziness, Denies headache(s), Reports nasal congestion, Denies nasal discharge and Denies neck pain Cardiovascular: Cardiovascular: Reports no additional cardiovascular complaints, Denies chest pain, Denies leg edema and Denies dyspnea Respiratory: Respiratory: Reports no additional respiratory complaints, Denies cough and Denies dyspnea Gastrointestinal: Gastrointestinal: Reports no additional gastrointestinal complaints, Denies abdominal pain, Denies diarrhea, Reports nausea and Reports vomiting Genitourinary: Genitourinary: Denies urinary incontinence Musculoskeletal: Musculoskeletal: Reports no additional musculoskeletal complaints, Denies back pain, Denies arthralgias, Denies joint swelling, Denies neck pain, Denies numbness and Denies tingling Integumentary/Breasts: Skin/Breast: Reports system reviewed and no additional complaints, except as docu and Denies rash Neurologic: Reports system reviewed and no additional complaints, except as documented, Denies Abnormal speech present, Denies dizziness, Denies headache(s), Denies numbness, Denies tingling and Denies weakness [facility] Past Medical History Attestation statement: The following information was validated with the patient. Source: old records reviewed and nursing notes reviewed Social History Social History Alcohol intake: never Advance Directives: No Advance Directives Information Provided: No Physical Exam 2 Vital Signs: Vital Signs: Last Vital Signs Temp 97.9 F 07/14/23 07:23 Pulse 85 07/14/23 07:23 Resp 18 07/14/23 07:23 BP 156/99 H 07/14/23 07:23 Pulse Ox 95 07/14/23 07:23 O2 Del Method Room Air 07/14/23 07:23 BMI result Body Mass Index 28.0 Const: General: cooperative, healthy appearing, comfortable and no acute distress Orientation/consciousness: patient oriented x3 Limitations: no limitations HEENT: Head: Yes normal to inspection Ears: hearing grossly normal bilaterally and TM's normal bilaterally General nose exam: Normal external nose present Face and sinus: Yes normal facial exam Mouth: Normal oral and palatal mucosa present Throat: Yes posterior oropharynx normal, Yes tonsils normal and Yes uvula midline Eyes: General: appearance normal, both eyes and all related structures P upils: Equal, round and reactive pupils present Neck: Neck: Yes normal visual inspection, Yes full ROM, Yes no lymphadenopathy and Yes no meningeal signs Chest: Chest palpation & inspection: normal inspection of the chest Resp: Effort & Inspection: normal respiratory effort Auscultation: clear to auscultation bilaterally Cardio: Rate: regular rate Rhythm: regular rhythm Peripheral pulses: P eripheral pulses 2+ throughout GI: Inspection: Yes normal to inspection Palpation (GI): Soft to palpation and nontender Auscultation: normal bowel sounds Back/Spine/Pelvis: Thoracic/Lumbar Spine: thoracic and lumbar spine normal to inspection Skin: General skin exam: no rashes or lesions noted Neuro: General: patient oriented x3, no meningeal signs, no focal motor deficits and normal sensation to monofilament Cranial nerves: Yes Equal, round and reactive pupils present Cognition (Neuro): normal cognition S peech: No Abnormal speech present Gait exam (Neuro): Normal gait present M otor exam (neuro): 5/5 motor strength present throughout Extrem: Other: I do not appreciate any erythema, swelling, skin rash. The patient has 2+ DP and PT pulses bilaterally. He has normal distal sensation. Full active and passive range of motion of both the knees, ankles and feet of the lower extremities. Patient does have some mild tenderness on palpation to the soft tissue of both ankles and heels. There is no calf pain or tenderness on exam. General: Yes normal to inspection Course Course Course Narrative: I reviewed the patient's labs which show a mild acidosis, mildly elevated BUN and mildly elevated CPK which may be consistent with dehydration in the setting of recent viral illness. it is quite mild and patient may orally hydrate at home. I did offer IV fluids which she initially accepted and then later declined. I did recommend that he continue to follow-up with his outpatient providers. Reviewed worrisome signs and symptoms of when to return to the emergency room. Comfortable plan for discharge home. Medical Decision Making Medical Decision Making [facility] Narrative: This is a 42-year-old male who has an underlying history of chronic back and neck pain with associated radiculopathy who presents to the ER with complaints of 3 days of body aches, runny nose, chills, vomiting. Patient reports he went to [facility] and had negative viral testing. Was discharged home but is concerned because he has continued pain and both of his lower extremities. Patient reports he has had pain in both of his lower legs and feet for many months but this has been worsened over the last 3 days. Patient reports a follow-up appointment with his neurologist in 2 days here [facility]. His neurologist is Dr. Cabral. Patient reports he has been taking Motrin and Tylenol with continued symptoms. He describes the pain as pain in both of his lower legs and feet and heels. There is no associated numbness or tingling. There is no associated redness, swelling or known injury or trauma. He has no complaints of cough, chest pain, shortness of breath, fever, sore throat, headache, abdominal pain, diarrhea, skin rash. Normal exam. Vitals are stable I do not appreciate any erythema, swelling, skin rash. The patient has 2+ DP and PT pulses bilaterally. He has normal distal sensation. Full active and passive range of motion of both the knees, ankles and feet of the lower extremities. Patient does have some mild tenderness on palpation to the soft tissue of both ankles and heels. There is no calf pain or tenderness on exam. patient had viral testing and strep testing were from triage which were unremarkable. Will obtain labs Differential Diagnosis Differential Diagnoses: The differential diagnosis associated with the presentation includes viral syndrome, rhabdomyolysis, neuropathy radiculopathy no signs of cellulitis, concern for DVT on exam Admission/Observation Consideration of admission/observation: Escalation of care including admission/observation considered Lab Data [facility] Lab Attestation statement: I reviewed the patient's lab results. 07/14/23 09:36 07/14/23 09:36 Labs: Lab Results 07/14/23 07/14/23 Range/Units 07:30 09:36 WBC 7.3 (4.8-10.8) X10*3/uL RBC 4.32 L (4.60-5.80) X10*6/uL Hgb 14.0 (14.0-18.0) g/dl Hct 38.8 L (42.0-52.0) % MCV 89.8 (80.0-98.0) fL MCH 32.4 (27.0-33.0) pg MCHC 36.1 H (31.0-36.0) g/dl RDW 12.0 (11.0-16.0) % Plt Count 172 (160-400) X10*3/uL MPV 10.2 (9.4-12.4) fL Immature Gran % (Auto) 0.3 (0.0-0.4) % Neut % (Auto) 64.5 (45-73) % Lymph % (Auto) 22.7 (20-40) % [place] % (Auto) 8.9 (2-11) % Eos % (Auto) 3.3 (0-4) % Baso % (Auto) 0.3 (0-2) % Lymph # (Auto) 1.7 (1.2-4.9) X10*3/uL [place] # (Auto) 0.7 (0.1-1.2) X10*3/uL Eos # (Auto) 0.2 (0.0-0.4) X10*3/uL Baso # (Auto) 0.0 (0.0-0.2) X10*3/uL Abs Immat Gran (auto) 0.02 (0.00-0.03) X10*3/uL Absolute Neuts (auto) 4.7 (2.0-8.3) x10*3/uL Absolute Nucleated RBC 0.000 (0.0-0.012) X10*3/uL Nucleated RBC % (auto) 0.0 (0.0-0.2) /100WBC Sodium 140 (135-145) mmol/L Potassium 4.3 (3.3-5.1) mmol/L Chloride 112 H (96-108) mmol/L Carbon Dioxide 21 L (22-29) mmol/L Anion Gap 11 L (12-20) BUN 26 H (9-16) mg/dL Creatinine 0.85 (0.5-1.4) mg/dL Estim Creat Clear Calc 136.9 Estimated GFR > 60 Random Glucose 94 (60-115) mg/dL Calcium 8.5 (8.4-10.2) mg/dL Magnesium 1.9 (1.6-2.6) mg/dL Total Bilirubin 0.3 (0.0-1.0) mg/dL Direct Bilirubin 0.1 (0.0-0.5) mg/dL AST 23 (5-37) U/L ALT 23 (0-40) U/L Alkaline Phosphatase 64 (39-117) U/L Total Creatine Kinase 551 H (38-174) U/L Total Protein 6.4 L (6.5-8.0) g/dL Albumin 3.8 (3.5-5.0) g/dL Influenza Type A (PCR) NEGATIVE (Negative) Influenza Type B (PCR) NEGATIVE (Negative) RSV RNA Qual (PCR) NEGATIVE (Negative) SARS-CoV-2 RNA (RT-PCR) NEGATIVE (Negative) S. pyogenes GrpA GEMMA Negative (Negative) External Record Review External record reviewed: Outpatient record Prescription Management I considered prescription management with: Pain Medication Discharge Plan Discharge Clinical Impression: Viral infection, Dehydration, mild, Chronic leg pain Patient Disposition: Home, Self-Care Instructions: Dehydration (ED), Chronic Pain (ED), Viral Syndrome (ED) Additional Instructions: You are mildly dehydrated so I do recommend drinking a lot of fluids today or things like Gatorade or Powerade We did offer some IV fluids but you felt that you could orally rehydrate at home and declined this You may continue to take Motrin and Tylenol for pain. We are adding a muscle relaxant and a topical pain cream. Follow-up with your neurologist outpatient Prescriptions: New diclofenac sodium [Voltaren Arthritis Pain] 1 % gel 4 g topical QID Qty: 100 0RF Rx Instructions: apply to affected area cyclobenzaprine 10 mg tablet 10 mg PO TID PRN (Reason: muscle spasm) Qty: 6 0RF No Action cyclobenzaprine 10 mg tablet 10 mg PO TID PRN (Reason: muscle pain or spasm) Qty: 30 0RF ketorolac 10 mg tablet 10 mg PO Q6H PRN (Reason: pain) 5 Days Qty: 20 0RF cyclobenzaprine 5 mg tablet 5 mg PO TID PRN (Reason: muscle spasm) Qty: 10 0RF ibuprofen 600 mg tablet 600 mg PO Q6H PRN (Reason: pain) Qty: 20 0RF lidocaine 5 % adhesive patch,medicated 1 patch topical DAILY Qty: 15 0RF Rx Instructions: leave on most painful area for up to 12 hrs Referrals: Juan Miguel Day, [Primary Care Provider] - 1 week
[2023-07-14 09:58] LABS: Alanine Aminotransferase 23 U/L (0-40); Albumin Level 3.8 g/dL (3.5-5.0); Alkaline Phosphatase 64 U/L (39-117); Anion Gap 11 (12-20); Aspartate Amino Transferase 23 U/L (5-37); Bilirubin Direct 0.1 mg/dL (0.0-0.5); Bilirubin Total 0.3 mg/dL (0.0-1.0); Blood Urea Nitrogen 26 mg/dL (9-16); Calcium 8.5 mg/dL (8.4-10.2); Carbon Dioxide 21 mmol/L (22-29); Chloride 112 mmol/L (96-108); Creatinine Clr Calc Pharmacy 136.9; Estimated Glomerular Filt Rate > 60; Glucose Random 94 mg/dL (60-115); Magnesium 1.9 mg/dL (1.6-2.6); Potassium 4.3 mmol/L (3.3-5.1); Sodium 140 mmol/L (135-145); Total Protein 6.4 g/dL (6.5-8.0)
== END 2023-07-14 10:27 | disposition home or self-care (01) ==
PROVIDERS: Nurse Practitioner Family; Emergency Provider Emergency Medicine; PCP Pediatrics
DX: B34.9 Viral infection, unspecified (principal); E86.0 Dehydration; M54.2 Cervicalgia; G89.29 Other chronic pain; M54.9 Dorsalgia, unspecified; R09.89 Other specified symptoms and signs involving the circulatory and respiratory systems; M79.605 Pain in left leg; M79.604 Pain in right leg; Z11.52 Encounter for screening for COVID-19; Z20.828 Contact with and (suspected) exposure to other viral communicable diseases
CPT/HCPCS: 0241U; 36415; 80048; 80076; 82550; 83735; 85025; 87651; 99283

== ENCOUNTER 2024-04-08 14:31 | Emergency (ER) | payer OTHER, SELFPAY ==
--- NOTE | ~2024-04-08 | CT_ITS ---
EXAMINATION: CT HEAD WITHOUT CONTRAST CLINICAL INFORMATION: Headache status post fall. COMPARISON: CT head dated May 30, 2022. TECHNIQUE: Contiguous axial imaging was performed from the skull base to vertex without intravenous administration of contrast. This CT examination was performed using dose optimization techniques as appropriate, variously including the following: *Automated exposure control *Adjustment of mA and/or kV according to patient size (this includes techniques or standardized protocols for targeted exams where dose is matched to indication/reason for exam; i.e. extremities or head) *Use of iterative reconstruction technique DLP: 744 mGy-cm FINDINGS: There is no acute intracranial hemorrhage. There is no evidence of acute/subacute cerebral or cerebellar infarction. There is a small developmental venous anomaly within the anterior parasagittal left frontal lobe redemonstrated. There is no midline shift or mass effect. There is no extra-axial fluid collection. The ventricles are normal in size. The orbits are normal in appearance. The calvarium is intact. The mastoid air cells are well aerated. Visualized paranasal sinuses are clear. CT/CT head/brain wo IV con IMPRESSION: No acute intracranial pathology. Electronically signed by: Sarbjit Shane DO 04/08/2024 05:35 PM [facility]
--- NOTE | ~2024-04-08 | CT_ITS ---
EXAMINATION: CT CERVICAL SPINE WITHOUT CONTRAST CLINICAL INFORMATION: Neck pain status post fall. COMPARISON: MRI cervical spine dated December 01, 2021. TECHNIQUE: Noncontrast CT of the cervical spine was performed. This CT examination was performed using dose optimization techniques as appropriate, variously including the following: *Automated exposure control *Adjustment of mA and/or kV according to patient size (this includes techniques or standardized protocols for targeted exams where dose is matched to indication/reason for exam; i.e. extremities or head) *Use of iterative reconstruction technique DLP: 439 mGy-cm FINDINGS: Prevertebral soft tissue is normal in appearance. There is reversal of the normal cervical lordosis centered at C5-6. This kyphotic deformity was seen on the MRI dated December 01, 2021. It appears more exaggerated on the current examination probably due to positioning. There is trace anterolisthesis of C2 in relation to C3. There is trace retrolisthesis of C5 in relation to C6. These findings are unchanged compared with MRI dated December 01, 2021. The posterior elements are anatomically aligned. The atlantooccipital articulations are maintained. The C1-C2 relationship is anatomic. The dens is intact. Vertebral body heights are preserved. There is moderate narrowing of the C5-6 and moderate to severe narrowing of the C6-7 intervertebral disc spaces. These findings appear similar to that seen on December 01, 2021 MRI. There is no acute cervical spine fracture. There is multilevel facet arthropathy. There are multilevel disc osteophyte complexes, most conspicuous at C5-6 and C6-7. There is mild to moderate spinal canal stenosis at these levels. There is moderate to severe foraminal narrowing at these levels. The thyroid gland is normal in appearance. CT/CT cervical spine wo IV con IMPRESSION: No acute osseous cervical spine abnormality. Degenerative changes as described above. Fleischner guidelines were followed. Electronically signed by: Sarbjit Shane DO 04/08/2024 05:58 PM EST
--- NOTE | ~2024-04-08 | CT_ITS ---
EXAMINATION: CT FACIAL BONES WITHOUT CONTRAST CLINICAL INFORMATION: Nose pain status post fall. COMPARISON: CT facial bones dated May 30, 2022. TECHNIQUE: Noncontrast computed tomography of the facial bones was performed. This CT examination was performed using dose optimization techniques as appropriate, variously including the following: *Automated exposure control *Adjustment of mA and/or kV according to patient size (this includes techniques or standardized protocols for targeted exams where dose is matched to indication/reason for exam; i.e. extremities or head) *Use of iterative reconstruction technique DLP: 509 mGy-cm FINDINGS: There is no acute facial bone fracture. The temporomandibular joints are maintained. The paranasal sinuses are well-aerated. The orbits are symmetric and within normal limits. The visualized brain is normal in appearance. The mastoid air cells are clear. CT/CT facial bones wo IV con IMPRESSION: No acute facial bone fracture. Electronically signed by: Sarbjit Shane DO 04/08/2024 06:05 PM [facility]
[2024-04-08 15:02] VITALS: BP 145/88; PULSE 82; RESP 18; TEMP 36.6; O2SAT 97; BMI 31.8
--- NOTE | 2024-04-08 15:02 | ED.FALL ---
HPI - Fall General Chief Complaint: Fall Stated Complaint: Fall - nose injury, neck pain Time Seen by Provider: 04/08/24 20:47 Source: patient Mode of arrival: ambulatory Limitations: no limitations History of Present Illness ED Provider: Milagros Romero PA-C HPI Narrative: 43 yo male with history of chronic neck pain who presents to the ER for evaluation of 10/28 nose and neck pain s/p fall 2 days ago. headache yesterday, none at present. he tripped and fell onto his face. had epistaxis at the time. no LOC. not on anticoagulation. superficial lac to the bridge of the nose. he wants to make sure he didn't break his nose and have to have it reset. he reports chronic neck pain and abnormal MRI in the past. he denies any UE weakness, numbness or tingling. MD complaint: fall Onset (ago): day(s) (2) Fall from: standing Fall witnessed: no Place fall occurred: home Loss of consciousness: none Prolonged down time: no Symptoms prior to fall: none Context: tripped/slipped Location of injury: face Severity: moderate Severity scale (1-10): 6 Quality: aching Associated symptoms (after fall): headache Related Data Previous Rx's ?Medication ?Instructions ?Recorded ketorolac 10 mg tablet 10 mg PO Q6H PRN pain 5 days #20 03/04/21 tabs cyclobenzaprine 10 mg tablet 10 mg PO TID PRN muscle pain or 12/11/21 spasm #30 tabs cyclobenzaprine 5 mg tablet 5 mg PO TID PRN muscle spasm #10 09/06/22 tabs ibuprofen 600 mg tablet 600 mg PO Q6H PRN pain #20 tabs 09/06/22 lidocaine 5 % topical patch 1 patch topical DAILY Back pain 09/06/22 #15 ea cyclobenzaprine 10 mg tablet 10 mg PO TID PRN muscle spasm #6 07/14/23 tabs diclofenac sodium 1 % topical gel 4 g topical QID #100 grams 07/14/23 (Voltaren Arthritis Pain) Allergies Allergy/AdvReac Type Severity Reaction Status Date / Time haloperidol [From HALDOL] Allergy Severe RESP Verified 04/08/24 15:03 DISTRESS Phenothiazines Allergy Unknown EPS Verified 04/08/24 15:03 [PHENOTHIAZINES] propofol Allergy Unknown Verified 04/08/24 15:03 Review of Systems Review of Systems: Yes all other systems are reviewed and are negative [facility] Social History Social History Alcohol intake: never Advance Directives: No Advance Directives Information Provided: Yes Do you have a plan to hurt others: No Plan Physical Exam Vital Signs: Vital Signs: Last Vital Signs Temp 97.8 F 04/08/24 21:06 Pulse 82 04/08/24 21:06 Resp 18 04/08/24 21:06 BP 145/88 H 04/08/24 21:06 Pulse Ox 97 04/08/24 21:06 BMI result Body Mass Index 31.8 Appearance: Alert. Oriented X3. No acute distress. Head: normocephalic, atraumatic. Eyes: Pupils equal, round and reactive to light. ENT: nose with mild generalized swelling, superficial horizontal, linear laceration with scabbing over the bridge of the nose. no septal hematoma, no epistaxis. Pharynx normal. No tonsillar swelling or exudate. Neck: Normal inspection. Neck supple. No midline tenderness or stepoff deformity CVS: Normal heart rate and rhythm. Pulses normal. Respiratory: No respiratory distress. Breath sounds normal. Skin: Skin warm and dry. Normal skin color. Normal skin turgor. No rashes. Extremities: No lower extremity edema. No joint swelling. Neuro/psych: Oriented X 3. No motor deficit. No sensory deficit. CN II-XII intact. Normal speech and cognition. Medical Decision Making Medical Decision Making MDM Narrative: 43 yo male presenting to the ER for evaluation of nose pain, neck pain and headache s/p trip and fall 2 days ago. no LOC. not on anticoagulation. physical exam is reassuring. CT scans of the head, face and c-spine did not show any acute injuries. patient counseled on results and management of nasal contusion, head injury. stable for d/c home Differential Diagnosis Differential Diagnoses: The differential diagnosis associated with the presentation includes nasal bone fracture, nose contusion, concussion, laceration, abrasion, cervical muscle strain/spasm Independent Interpretation I performed an independent interpretation of an: CT Scan Interpretation: no acute intracranial edema or bleed, no appreciated nasal bone fx. agree w/ radiology read Radiology Impression Discussion of test interpretation with radiology: I have reviewed the radiologist's reading. Radiologist Impression: CT/CT head/brain wo IV con IMPRESSION: No acute intracranial pathology. CT/CT facial bones wo IV con IMPRESSION: No acute facial bone fracture. CT/CT cervical spine wo IV con IMPRESSION: No acute osseous cervical spine abnormality. Degenerative changes as described above. External Record Review External record reviewed: Prior outpatient labs and Prior outpatient radiology Prescription Management I considered prescription management with: Pain Medication Critical Care Time Critical Care Time Critical Care Time: No Discharge Plan Discharge Clinical Impression: Contusion of nose Patient Disposition: Home, Self-Care Instructions: Nasal Contusion (ED) Additional Instructions: CT scans of your head, face, neck were unremarkable. No evidence of a broken nose. Take Motrin and Tylenol as needed for pain. Use ice several times the area for pain and swelling. Follow-up with your doctor. If you develop new or worsening symptoms call 911 or come back to the ER for further evaluation. Prescriptions: No Action cyclobenzaprine 10 mg tablet 10 mg PO TID PRN (Reason: muscle pain or spasm) Qty: 30 0RF ketorolac 10 mg tablet 10 mg PO Q6H PRN (Reason: pain) 5 Days Qty: 20 0RF cyclobenzaprine 5 mg tablet 5 mg PO TID PRN (Reason: muscle spasm) Qty: 10 0RF ibuprofen 600 mg tablet 600 mg PO Q6H PRN (Reason: pain) Qty: 20 0RF lidocaine 5 % adhesive patch,medicated 1 patch topical DAILY Qty: 15 0RF Rx Instructions: leave on most painful area for up to 12 hrs diclofenac sodium [Voltaren Arthritis Pain] 1 % gel 4 g topical QID Qty: 100 0RF Rx Instructions: apply to affected area cyclobenzaprine 10 mg tablet 10 mg PO TID PRN (Reason: muscle spasm) Qty: 6 0RF Interventions: ED Discharge Assessment Last Done: 04/08/24 21:06 Discharge Date/Time: 04/08/24 21:07 Print Language: [place]
[2024-04-08 21:06] VITALS: BP 145/88; PULSE 82; RESP 18; TEMP 36.6; O2SAT 97
== END 2024-04-08 21:07 | disposition home or self-care (01) ==
PROVIDERS: Emergency Provider Emergency Medicine Emergency Medical Services; PCP Pediatrics
DX: S00.33XA Contusion of nose, initial encounter (principal); W18.39XA Other fall on same level, initial encounter; M54.2 Cervicalgia; R51.9 Headache, unspecified; Y93.9 Activity, unspecified; Y92.019 Unspecified place in single-family (private) house as the place of occurrence of the external cause; Y99.9 Unspecified external cause status
CPT/HCPCS: 70450; 70486; 72125; 99282; 99284

== ENCOUNTER 2024-04-22 11:45 | Outpatient (RCR) | payer OTHER, SELFPAY ==
--- NOTE | 2024-04-22 13:37 | MHC.PT.EP ---
[facility] [place] [facility] [place] Office [place] Office [address] David Gagnon [address] [phone] F: [phone] F: [phone] F: [phone] F: [phone] Physical Therapy Plan of Care Date of Evaluation: 04/22/24 Date of Surgery: N/A Diagnosis: low back pain (RL) Assessment: pt is a 43 y/o male presenting to physical therapy w/ referring diagnosis of low back pain. His symptoms are more prominent to cervical and thoracic spine at this time. Will pursue script for cervical spine as well. Impairments include pain, decreased range of motion, decreased strength, impaired functional mobility, impaired postural awareness, and altered ambulation mechanics. pt is a good candidate for skilled PT due to age, potential remediation of impairments, typical disease/condition progression and prognosis, comorbidities, and motivation. pt would benefit from skilled PT intervention to provide a tailored strengthening and stretching exercise program, functional training, gait training, postural re-training, neuromuscular re-education, modalities as needed for pain, equipment safety demonstration. Frequency and Duration: The patient will be seen 2x/wk for 3 wks Short Term Goals: pt will be I w/ HEP to promote self-management of condition. pt will demo proper sitting posture w/ lumbar roll to promote neutral spine w/ seated ADLs. Excavating Supervisor Goals: pt will report a statistically significant improvement in self-reported outcome measure, Yamilex, to promote return to PLOF. pt will demo proper lifting mechanics x5 reps w/ 30# object to promote neutral spine w/ lifting. Treatment Plan: Modalities to reduce pain, spasms and effusion. Manual therapy to restore motion and function. Therapeutic exercise to improve strength and flexibility. Neuromuscular re-education for posture and balance. Therapeutic activities to return to functional activities of daily living. Electronically signed by: Shyanne Bower PT, DPT Please sign and return to therapist. Thank you for your referral.
--- NOTE | 2024-05-05 15:31 | MHC.PT.DC ---
[facility] [place] [facility] [place] [facility] [place] [facility] [address] David Gagnon 140 [facility] [phone] F: [phone] F: [phone] F: [phone] F: [phone] Physical Therapy Discharge Report Diagnosis: low back pain (RL) Date of Surgery: N/A Date of Evaluation: 04/22/24 Date of Discharge: 05/05/24 Treatments to Date: 1 Cancellations to Date: 0 No Shows to Date: 0 Discharge Status: Visit Non-compliance Discharge Summary: The patient has not called to schedule any follow-up appointments after his initial evaluation in two weeks. He is discharged at this time. Electronically signed by: Shyanne Bower PT, DPT Please sign and return to therapist. Thank you for your referral.
== END 2024-05-05 15:31 | disposition home or self-care (01) ==
LOC: HO.PT 11:45
PROVIDERS: PCP Pediatrics; Visit Provider Psychiatry & Neurology Neurology
DX: M54.50 Low back pain, unspecified (principal)
CPT/HCPCS: 97112; 97162

== ENCOUNTER 2024-08-23 14:23 | Emergency (ER) | payer OTHER, SELFPAY ==
--- NOTE | ~2024-08-23 | XR_ITS ---
CLINICAL HISTORY: low back pain 3 views lumbar spine Comparison: None Findings: Normal alignment. No acute fractures or dislocation. No significant degenerative change. IMPRESSION: No acute findings. This document has been electronically signed by: Ronnie Elizondo MD on 08/23/2024 15:32:54
--- NOTE | ~2024-08-23 | XR_ITS ---
CLINICAL HISTORY: hip pain 4 view, pelvis and right hip Comparison: None Findings: No acute fracture or dislocation. No significant arthritic change. The soft tissues are unremarkable. IMPRESSION: No acute findings. This document has been electronically signed by: Ronnie Elizondo MD on 08/23/2024 15:34:03
[2024-08-23 14:37] VITALS: BP 153/67; PULSE 75; RESP 18; TEMP 36.4; BMI 31.4
--- NOTE | 2024-08-23 14:39 | ED_ITS ---
HPI - Back Pain/Injury General Chief Complaint: Back Pain/Injury Stated Complaint: back pain Time Seen by Provider: 08/23/24 15:22 Source: patient Mode of arrival: ambulatory Limitations: no limitations History of Present Illness ED Provider: Bonny Mcknight PA-C HPI Narrative: Patient is a 43 year old assigned male at with a history of chronic low back pain presenting to the emergency department today with acute on chronic low back pain. Patient states that he has been having issues with his back for a long time and it seems to be getting progressively worse. Patient states that he is already in discussions about a surgery and today he would like something to help manage his pain. Patient states that he is on pregablin and clonazepam already. Patient denies any dizziness, lightheadedness, abdominal pain, nausea, vomiting, fever, chills, blurry vision, double vision, loss of vision, chest pain, difficulty breathing, shortness of breath, night sweats, pain with urination, increased urinary frequency, increased urinary urgency, blood in his urine or stool, syncope or a near syncopal episode, recent trauma or falls, bowel incontinence, bladder incontinence, or any other complaints at this time. Related Data Previous Rx's ?Medication ?Instructions ?Recorded ketorolac 10 mg tablet 10 mg PO Q6H PRN pain 5 days #20 03/04/21 tabs cyclobenzaprine 10 mg tablet 10 mg PO TID PRN muscle pain or 12/11/21 spasm #30 tabs cyclobenzaprine 5 mg tablet 5 mg PO TID PRN muscle spasm #10 09/06/22 tabs ibuprofen 600 mg tablet 600 mg PO Q6H PRN pain #20 tabs 09/06/22 lidocaine 5 % topical patch 1 patch topical DAILY Back pain 09/06/22 #15 ea cyclobenzaprine 10 mg tablet 10 mg PO TID PRN muscle spasm #6 07/14/23 tabs diclofenac sodium 1 % topical gel 4 g topical QID #100 grams 07/14/23 (Voltaren Arthritis Pain) Allergies Allergy/AdvReac Type Severity Reaction Status Date / Time haloperidol [From HALDOL] Allergy Severe RESP Verified 08/23/24 14:40 DISTRESS Phenothiazines Allergy Unknown EPS Verified 08/23/24 14:40 [PHENOTHIAZINES] propofol Allergy Unknown Verified 08/23/24 14:40 Review of Systems 2 Constitutional: Constitutional: Reports no additional constitutional complaints, Denies chills, Denies fever(s) and Denies night sweats Eyes: Eyes: Reports no additional eye complaints, Denies blurry vision, Denies change in vision, Denies diplopia, Denies eye discharge, Denies loss of vision and Denies eye pain ENT: Denies dizziness Cardiovascular: Cardiovascular: Reports no additional cardiovascular complaints, Denies chest pain, Denies lightheadedness, Denies Loss of Consciousness and Denies dyspnea Respiratory: Respiratory: Reports no additional respiratory complaints and Denies dyspnea Gastrointestinal: Gastrointestinal: Reports no additional gastrointestinal complaints, Denies abdominal pain, Denies melena, Denies hematochezia, Denies change in bowel habits and Denies change in stool character Genitourinary: Genitourinary: Reports no additional male genitourinary complaints, Denies hematuria, Denies oliguria, Denies difficulty urinating, Denies dysuria, Denies urinary frequency, Denies urinary hesitancy, Denies urinary incontinence and Denies urinary urgency Musculoskeletal: Musculoskeletal: Reports no additional musculoskeletal complaints, Reports back pain, Denies numbness and Denies tingling Neurologic: Denies dizziness, Denies loss of vision, Denies numbness and Denies tingling Psychiatric: Psychiatric: Reports no additional psychiatric complaints Endocrine: Endocrine: Reports no additional endocrine complaints Hematologic/Lymphatic: Hematologic/Lymphatic: Reports no additional hematologic/lymphatic complaints Allergic/Immunologic: Allergic/Immunologic: Reports no additional allergic/immunologic complaints PMFSH Past Medical History Attestation statement: The following information was validated with the patient. Source: old records reviewed and nursing notes reviewed Social History Social History Alcohol intake: never Advance Directives: No Advance Directives Information Provided: No Physical Exam 2 Vital Signs: Vital Signs: Last Vital Signs Temp 97.6 F 08/23/24 15:57 Pulse 75 08/23/24 15:57 Resp 18 08/23/24 15:57 BP 153/67 H 08/23/24 15:57 Pulse Ox 96 08/23/24 15:57 O2 Del Method Room Air 08/23/24 15:57 BMI result Body Mass Index 31.4 Const: General: cooperative, no acute distress, alert and awake Nutritional Appearance: well nourished Orientation/consciousness: patient oriented x3 Limitations: no limitations HEENT: Head: Yes normal to inspection and Yes atraumatic Ears: hearing grossly normal bilaterally and external ears normal General nose exam: Normal external nose present, no nasal discharge noted and no epistaxis Face and sinus: Yes normal facial exam, No abrasion and No laceration Mouth: Normal oral and palatal mucosa present, no drooling and no muffled voice Eyes: General: appearance normal, both eyes and all related structures P eriorbital: periorbital findings normal Eyelids: Yes eyelids normal C onjunctivae: conjunctivae normal Pupils: Equal, round and reactive pupils present EOM: EOMs intact bilaterally Neck: Neck: Yes normal visual inspection, Yes full ROM and Yes no lymphadenopathy Chest: Chest palpation & inspection: normal inspection of the chest Resp: Effort & Inspection: normal respiratory effort and able to speak in complete sentences GI: Inspection: Yes normal to inspection Neuro: General: patient oriented x3, moves all extremities and CN's II-XI intact bilaterally Cranial nerves: Yes Equal, round and reactive pupils present Cognition (Neuro): normal cognition Extrem: General: Yes normal to inspection, Yes full ROM and Yes capillary refill normal Psych: Appearance: grossly normal Mental Status: mental status grossly normal Affect: normal affect Attitude: cooperative Thought process: N ormal thought process present Thought content: Normal thought content present Insight: Good insight present (Psych) Course Course Course Narrative: This is a Rapid Medical Exam performed in triage by Barb Haque PA-C. Full HPI, ROS and PE to be performed by primary ED provider. 43 year old male presenting to the ED c/o R lower back/hip pain with associated calf tightness and foot pain with occasional numbness x months. Reports MRI 1 year ago and upcoming neurosurg appointment in October. PE: No focal neuro deficits. No pitting edema or calf tenderness. No midline tenderness. Abd soft/nontender. Ambulating with steady gait. Plan: labs, lumber and hip XR Medications Administered Discontinued Medications Generic Name Dose Route Start Last Admin Trade Name Freq PRN Reason Stop Dose Admin Hydromorphone HCl 1 mg 08/23/24 15:46 08/23/24 15:54 Hydromorphone Hcl 1 Mg/Ml Syringe IM 08/23/24 15:47 1 mg ONCE ONE Administration Protocol Medical Decision Making Medical Decision Making MDM Narrative: Patient is a 43 year old assigned male at with a history of chronic low back pain presenting to the emergency department today with acute on chronic low back pain. Patient's physical exam was unremarkable. Patient's blood work was unremarkable. Patient's hip/pelvis and lumbar spine x-rays showed no acute process. I explained my physical exam findings as well as all test results to the patient. I answered all questions asked by the patient. I offered the patient valium and prednisone however, he declined - stating he didn't believe these things would help. Patient requested 1mg of IM Dilaudid. Patient was given the 1mg of IM Dilaudid which he stated helped his pain significantly. I stressed the importance of the patient taking his medication as directed (either prescribed or as the over the counter packaging recommends). I stressed the importance of the patient following up with his primary care provider, a administrative specialist, and a pain specialist. I stressed the importance of the patient returning to the emergency department immediately if his symptoms were to worsen or if he were to develop any dizziness, shortness of breath, difficulty breathing, chest pain, blurry vision, loss of vision, nausea, vomiting, abdominal pain, fever, chills, back pain, or any other complaints. Patient verbalized agreement and understanding with this treatment plan and discharge. Differential Diagnosis Differential Diagnoses: The differential diagnosis associated with the presentation includes Low back pain Acute on chronic low back pain Admission/Observation Consideration of admission/observation: Escalation of care including admission/observation considered Patient would have been admitted to the hospital had his work up had any findings where hospital admission was appropriate and his clinical presentation warranted hospital admission. Lab Data [facility] Lab Attestation statement: I reviewed the patient's lab results. My interpretation of these results are in the [facility] Rationale portion of this note. 08/23/24 14:45 08/23/24 14:45 Labs: Lab Results 08/23/24 Range/Units 14:45 WBC 8.1 (4.8-10.8) X10*3/uL RBC 4.37 L (4.60-5.80) X10*6/uL Hgb 13.9 L (14.0-18.0) g/dl Hct 39.7 L (42.0-52.0) % MCV 90.8 (80.0-98.0) fL MCH 31.8 (27.0-33.0) pg MCHC 35.0 (31.0-36.0) g/dl RDW 12.2 (11.0-16.0) % Plt Count 153 L (160-400) X10*3/uL MPV 11.4 (9.4-12.4) fL Immature Gran % (Auto) 0.2 (0.0-0.4) % Neut % (Auto) 60.1 (45-73) % Lymph % (Auto) 26.8 (20-40) % [place] % (Auto) 10.0 (2-11) % Eos % (Auto) 2.7 (0-4) % Baso % (Auto) 0.2 (0-2) % Lymph # (Auto) 2.2 (1.2-4.9) X10*3/uL [place] # (Auto) 0.8 (0.1-1.2) X10*3/uL Eos # (Auto) 0.2 (0.0-0.4) X10*3/uL Baso # (Auto) 0.0 (0.0-0.2) X10*3/uL Abs Immat Gran (auto) 0.02 (0.00-0.03) X10*3/uL Absolute Neuts (auto) 4.9 (2.0-8.3) x10*3/uL Absolute Nucleated RBC 0.000 (0.0-0.012) X10*3/uL Nucleated RBC % (auto) 0.0 (0.0-0.2) /100WBC Sodium 137 (135-145) mmol/L Potassium 4.7 (3.3-5.1) mmol/L Chloride 105 (96-108) mmol/L Carbon Dioxide 24 (22-29) mmol/L Anion Gap 13 (12-20) BUN 15 (9-16) mg/dL Creatinine 0.70 (0.5-1.4) mg/dL Estim Creat Clear Calc 173.6 Estimated GFR > 60 Random Glucose 91 (60-115) mg/dL Calcium 8.9 (8.4-10.2) mg/dL Magnesium 2.1 (1.6-2.6) mg/dL Total Bilirubin 0.5 (0.0-1.0) mg/dL Direct Bilirubin 0.1 (0.0-0.5) mg/dL AST 73 H (5-37) U/L ALT 84 H (0-40) U/L Alkaline Phosphatase 79 (39-117) U/L Total Protein 7.0 (6.5-8.0) g/dL Albumin 4.0 (3.5-5.0) g/dL Independent Interpretation I performed an independent interpretation of an: Plain X-Ray Interpretation: My interpretation is in agreement with the radiologist's impression of these imaging studies. L CLINICAL HISTORY: low back pain 3 views lumbar spine Comparison: None Findings: Normal alignment. No acute fractures or dislocation. No significant degenerative change. IMPRESSION: No acute findings. This document has been electronically signed by: Ronnie Elizondo MD on 08/23/2024 15:32:54 Dictated By: Ronnie Elizondo MD Signed By: Electronically signed by Ronnie Elizondo MD 08/23/24 1534 CLINICAL HISTORY: hip pain 4 view, pelvis and right hip Comparison: None Findings: No acute fracture or dislocation. No significant arthritic change. The soft tissues are unremarkable. IMPRESSION: No acute findings. This document has been electronically signed by: Ronnie Elizondo MD on 08/23/2024 15:34:03 Dictated By: Ronnie Elizondo MD Signed By: Electronically signed by Ronnie Elizondo MD 08/23/24 1533 Radiology Impression Discussion of test interpretation with radiology: I have reviewed the radiologist's reading. Discharge Plan Discharge Clinical Impression: Chronic bilateral low back pain Patient Disposition: Home, Self-Care Instructions: Pain Management (ED), Chronic Pain (ED) Additional Instructions: Follow up with your primary care provider and a administrative specialist. Return to the emergency department immediately if your symptoms worsen or if you develop any numbness, tingling, dizziness, shortness of breath, difficulty breathing, chest pain, blurry vision, loss of vision, nausea, vomiting, abdominal pain, fever, chills, back pain, or any other complaints. Please see the information below about our Patient Portal. If you are not yet enrolled in the [facility] Patient Portal, you will receive an enrollment email invitation following your visit to any [facility] setting. You may also self-enroll in the Patient Portal by visiting our website: [email or web address] The following information is required to access the Patient Portal: - Your [facility] Medical Record Number - Your personal home email address (must match what is in your electronic medical record, Registration staff can assist with this) - Name - Date of Capabilities of the Patient Portal: - Message some providers - View upcoming appointments - Access your health summary, medical history, and visit history - View current conditions and allergies - View procedure and lab results - View your medications, including guidelines, side effects, and precautions - Complete pre-appointment questionnaires requested by your provider - Ready summary reports of your office visits and procedures To access the Patient Portal Mobile [employer], follow these directions: - Search [employer] in the [employer] Store or [employer] Store - Download the [employer] - Search for [facility] - Enter your login/password Prescriptions: No Action cyclobenzaprine 10 mg tablet 10 mg PO TID PRN (Reason: muscle pain or spasm) Qty: 30 0RF ketorolac 10 mg tablet 10 mg PO Q6H PRN (Reason: pain) 5 Days Qty: 20 0RF cyclobenzaprine 5 mg tablet 5 mg PO TID PRN (Reason: muscle spasm) Qty: 10 0RF ibuprofen 600 mg tablet 600 mg PO Q6H PRN (Reason: pain) Qty: 20 0RF lidocaine 5 % adhesive patch,medicated 1 patch topical DAILY Qty: 15 0RF Rx Instructions: leave on most painful area for up to 12 hrs diclofenac sodium [Voltaren Arthritis Pain] 1 % gel 4 g topical QID Qty: 100 0RF Rx Instructions: apply to affected area cyclobenzaprine 10 mg tablet 10 mg PO TID PRN (Reason: muscle spasm) Qty: 6 0RF Referrals: [facility] [Provider Group] (Call to establish and follow up with a administrative specialist.) [facility] [Provider Group] (Call to establish and follow up with a pain specialist. ) [facility] [Provider Group] (Call to establish and follow up with a administrative specialist.) Juan Miguel Day DO [Primary Care Provider] - Interventions: ED Discharge Assessment Last Done: 08/23/24 15:57 Discharge Date/Time: 08/23/24 15:59 Print Language: Nam[place]
[2024-08-23 14:55] LABS: MANUAL DIFF FLAG NO
[2024-08-23 15:02] LABS: Basophils Percent Auto 0.2 % (0-2); Eosinophils Absolute Auto 0.2 X10*3/uL (0.0-0.4); Eosinophils Percent Auto 2.7 % (0-4); Hematocrit 39.7 % (42.0-52.0); Hemoglobin 13.9 g/dl (14.0-18.0); Imm Gran Abs Auto 0.02 X10*3/uL (0.00-0.03); Imm Gran Pct Auto 0.2 % (0.0-0.4); Lymphocytes Absolute Auto 2.2 X10*3/uL (1.2-4.9); Lymphocytes Percent Auto 26.8 % (20-40); Mean Corpuscular Hemoglobin 31.8 pg (27.0-33.0); Mean Corpuscular Volume 90.8 fL (80.0-98.0); Mean Platelet Volume 11.4 fL (9.4-12.4); Monocytes Absolute Auto 0.8 X10*3/uL (0.1-1.2); Neutrophils Absolute Auto 4.9 x10*3/uL (2.0-8.3); Neutrophils Percent Auto 60.1 % (45-73); Platelet Count 153 X10*3/uL (160-400); Red Blood Count 4.37 X10*6/uL (4.60-5.80); Red Cell Distribution Width 12.2 % (11.0-16.0); White Blood Count 8.1 X10*3/uL (4.8-10.8)
[2024-08-23 15:13] LABS: Alanine Aminotransferase 84 U/L (0-40); Alkaline Phosphatase 79 U/L (39-117); Anion Gap 13 (12-20); Aspartate Amino Transferase 73 U/L (5-37); Bilirubin Direct 0.1 mg/dL (0.0-0.5); Bilirubin Total 0.5 mg/dL (0.0-1.0); Blood Urea Nitrogen 15 mg/dL (9-16); Calcium 8.9 mg/dL (8.4-10.2); Carbon Dioxide 24 mmol/L (22-29); Chloride 105 mmol/L (96-108); Creatinine Clr Calc Pharmacy 173.6; Estimated Glomerular Filt Rate > 60; Glucose Random 91 mg/dL (60-115); Magnesium 2.1 mg/dL (1.6-2.6); Potassium 4.7 mmol/L (3.3-5.1); Sodium 137 mmol/L (135-145)
--- OUTSIDE RECORDS SUMMARY | 2024-08-23 15:31 | XMS_ITS | Data Portability ---
Author Organization [facility] [email or web address], [email or web address] Address [address] [place] [address] [place] [address] Assessment Encounter Date Assessment Date Assessment LastModified by Organization Details LastModified Time 03/06/2023 03/06/2023 IMPRESSION: He has weakness of the left side more predominant at the left extension and finger abductors. There is also some subtle dysmetria of the left upper extremity and some stepping out with tandem gait. There is slight asymmetry of the patellar reflexes but no other refill, no Stanislaw's or Babinski. This in the context of history of ischemic stroke by his report and cervical myelopathy involving C5-6 and 7 per his report. He has multilevel lumbar disc disease on imaging and he had radiating symptoms into his right more than left leg at the time of his referral which have improved with yoga. I asked him if he had 1 final question at the end of the physical examination that we had not addressed as we only got through about one third of his list today he would like to know if the constellation of symptoms could be neuro degenerative, in particular could it be ALS. I explained that the degenerative findings noted on the lumbar spine are in the bony tissue rather than the neurologic tissue with respect to the neck though I do not have a copy of images, weakness correlates with the region of the cervical spine that he describes (C5-6-7, left wrist extension and finger abduction) and that I cannot predict whether he will get a neurodegenerative disease such as ALS but it is a diagnosis of exclusion and his weakness can be explained by the cervical myelopathy. This would not explain the possible softening of the left face. He has slight discoordination of the left upper extremity which can be caused by subtle weakness. A cervical myelopathy can also cause decreased balance. he says that he has had an ischemic stroke and in the right location, ischemic stroke can cause some difficulty with balance and stability of facial weakness although this particular finding is a bit unclear and confounded by his demonstration of speaking to the right side. We do not have any evidence that he has had a prior infarct, if he has had infarct then the only recommendation other than continuing to work with his neurologist and potentially neurosurgeon for the cervical myelopathy is secondary stroke prophylaxis with antiplatelet and high intensity statin and management of any cardiovascular risk factors. Regarding some of his other concerns: -He has questions about dopaminergic agents: He is not on any now. There is a slight movement of the tongue and uses the word tardive dyskinesia . This is possible if he has been on any long-term antipsychotic medications, he is not on any now. -There is also an action tremor which can be medication effect, possibly hyperthyroidism or benign essential tremor. I explained that these are benign. He is comfortable with working with primary care provider and with his neurologist. We did not make it to his entire list of symptoms but after discussion of his primary concerns says he does not have any more questions at present but I left the door open if he would like to schedule follow-up as needed if he has any additional questions. 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 -We did not discuss his question about attention problems and whether the underlying etiology could be from brain damage stroke hypoxic brain injury or concussions Plan: Eugene Fountain March 06, 2023 You report that the lumbar symptoms have improved with yoga You also report that you have cervical spine issues and work with another area neurologist, I encourage you to continue working with him as he knows your history and imaging and background You mentioned that you have a history of ischemic stroke, I do not have any evidence of acute ischemic stroke however if this is the case and recommend secondary prevention with antiplatelet agent and high intensity statin You had a number of questions today, many of which we addressed. Some were not answered and you did not complete your list and so you may not have asked all of your questions. You do not need to follow-up with us for the neurologic issues that we discussed today however, if we were unable to answer your questions and you are welcome to set up another appointment to discuss them Discussed with Dr Barcenas, Impression and plan developed with him jennifer Not available 03/06/2023 20:36:30 Plan of Treatment Reminders Order Date Submit Date Provider Last Modified By Organization Details Last Modified Time Details Appointments None record ed. Lab None record ed. Referral None record ed. Procedures None record ed. Surgeries None record ed. Imaging None record ed. Medication Orders None record ed. Patient TargetsNo targets recorded. Patient Instructions Encounter Date Encounter Id Patient Instructions Last Modified By Organization Details Last Modified Time 03/06/2023 [id number] Discussion acros s issues of diagnoses and management and same day associated chart review and management greater than 50% greater than 90 minutes [email or web address] Not available 03/06/2023 20:36:46 Reason for Referral None Reported. Results Created Date Observation Date Name Description Value Unit Range Abnormal Flag Note LastModifiedBy Organization Detail LastModifiedTime 03/05/2001/05/2023 MRI, lumba r spine , w/o contr ast No observ ation record ed. [address] [place], [address], 03/06/2023 16:19:05 03/07/2005/30/2022 CT, head, w/o contr ast No observ ation record ed. [address], [address], 03/12/2023 13:53:20 03/07/2004/16/2022 CT, angio gram, head + neck, w/wo contr ast No observ ation record ed. [email or web address] Not Available 2022 11:52:10 Result Notes None recorded. Procedures Surgical History Date Name Laterality Status Provider Name and Address Organization Details Recorded Time 03/06/2023 DATA REVIEW completed STAN BARNETT PA-C [address] [place] [address], [phone], [facility] 03/06/2023 20:52:00 Imaging Results Imaging Date Name Status LastModified by Organiz [facility] Details LastModified Time 01/05/2023 [facility], [facility] w[facility] [place], [address], 03/06/2023 16:19:05 05/30/2022 CT, head, w/o contrast completed [facility] [address] [place], [address], 03/12/2023 13:53:20 04/16/2022 CT, angiogram, head + neck, w/wo contrast completed Information not available 03/07/2023 11:52:10 Procedure Notes None recorded. Medical Equipment None Reported. Allergies Allergen ID Allergen Name Allergen Category Reaction Reaction Severity Criticality Documentation Date Start Date Code Code System Note Provider Name and Address Organization Details Recorded Time 3237 haloperid ol medicatio n Not available Not available Not available 03/06/2023 5093 RxNorm Stan Donnellson [facility] 3 13:09:28 3238 propofol medicatio n Not available Not available Not available 03/06/2023 8782 RxNorm Stan Johnson [facility] 13:09:35 Medications Name Sig Start Date Stop Date Status Note LastModified by Organization Details LastModified Time cyclobenzapr ine 10 mg tablet TAKE 1 TABLET BY MOUTH THREE TIMES DAILY NEEDED active Not Available Not Available No t Available clonidine HCl 0.1 mg tablet TAKE 1 TO 2 TABLETS BY MOUTH AT BEDTIME NEEDED FOR ANXIETY active Not Available Not Available No t Available triazolam 0.25 mg tablet TAKE 2 TABLETS BY MOUTH ONCE DAILY AT BEDTIME NEEDED active Not Available Not Available No t Available tizanidine 4 mg tablet TAKE 1 TABLET BY MOUTH EVERY 6 HOURS NEEDED active Not Available Not Available No t Available lisinopril 20 mg tablet TAKE 1 TABLET BY MOUTH ONCE DAILY active Not Available Not Available No t Available ondansetron HCl 4 mg tablet TAKE 1 TABLET BY MOUTH ONCE DAILY NEEDED active Not Available Not Available No t Available famotidine 40 mg tablet TAKE 1 TABLET BY MOUTH ONCE DAILY AT BEDTIME active Not Available Not Available No t Available baclofen 20 mg tablet TAKE 1 TABLET BY MOUTH THREE TIMES DAILY DIRECTED active Not Available Not Available Not Available pantoprazole 20 mg tablet,delay ed release TAKE 1 TABLET BY MOUTH ONCE DAILY active Not Available Not Available No t Available methocarbamo l 750 mg tablet TAKE 1 TABLET BY MOUTH THREE TIMES DAILY active Not Available Not Available Not Available pantoprazole 40 mg tablet,delay ed release TAKE 1 TABLET BY MOUTH ONCE DAILY active Not Available Not Available No t Available lidocaine 5 % topical patch USE 1 PATCH EXTERNALLY ONCE DAILY FOR BACK PAIN; LEAVE ON MOST PAINFUL AREA FOR UP TO 12 HOURS active Not Available Not Available Not Available clonazepam 2 mg tablet TAKE 1 TABLET BY MOUTH ONCE DAILY AT BEDTIME active Not Available Not Available No t Available gabapentin 100 mg capsule TAKE 6 CAPSULES BY MOUTH THREE TIMES A DAY FOR 3 DAYS, THEN REDUCE BY 1 CAPSULE THREE TIMES A DAY EVERY 3 DAYS UNTIL AT 1 CAP THREE TIMES A DAY FOR 3 DAYS active Not Available Not Available N ot Available ibuprofen 600 mg tablet TAKE 1 TABLET BY MOUTH EVERY 6 HOURS NEEDED FOR PAIN active Not Available Not Available No t Available chlorpromazi ne 50 mg tablet TAKE 1 TABLET BY MOUTH THREE TIMES A DAY NEEDED FOR ANXIETY (1 TABLET SHOULD BE TAKEN AT BEDTIME DAILY) active Not Available Not Available No t Available cyclobenzapr ine 5 mg tablet TAKE 1 TABLET BY MOUTH THREE TIMES DAILY NEEDED FOR MUSCLE SPASM active Not Available Not Available No t Available mirtazapine 7.5 mg tablet TAKE 1 TABLET BY MOUTH NIGHTLY AT BEDTIME active Not Available Not Available No t Available eszopiclone 3 mg tablet TAKE 1 TABLET BY MOUTH ONCE DAILY IMMEDIATELY BEFORE BEDTIME active Not Available Not Available No t Available pregabalin 50 mg capsule TAKE 1 CAPSULE BY MOUTH THREE TIMES DAILY active Not Available Not Available Not Available pregabalin 75 mg capsule TAKE 1 CAPSULE BY MOUTH THREE TIMES DAILY active Not Available Not Available Not Available sodium fluoride 1.1 % dental paste USE BEFORE BED active Not Available Not Available No t Available Vitals Date Recorded Body height Body mass index (BMI) Body weight Respiratory rate Provider Name and Address Organization Details Last Updated DateTime 03/06/2023 185.42 cm 27 kg/m2 16065.44 g 12 /min Stan Johnson [facility] 03/06/2023 13:09:18 Social History None recorded. Functional Status None recorded. Mental Status None recorded. Family History Relationship Description Onset Age of this Age Resolved Age Notes LastModified by Organization Details LastModified Time Mother Hypertensive disorder [email or web address] Not available 2022 13:10:34 Mother Neuropathy Not available 03/06/2023 13:10:47 Medical History Condition Response Head Trauma/Injury N Lung Disease N Depression N COPD or emphysema N Spine Problems N Obstructive Sleep Apnea N Alcoholism N Autoimmune disease N Arthritis N Developmental Problems N Cancer N Stroke Y Heartburn, acid reflux, GERD Y Vitamin D Deficiency N Liver Disease N Headaches N Fibromyalgia N Kidney Disease N Claustrophobia N Hospitalizations N High Blood Pressure or Hypertension Y Thyroid Problems N Brain Tumors N Encephalitis N Vitamin B12 deficiency N PTSD N Heart Attack ([place]) N Diabetes N Bleeding Disorder N Tuberculosis N Cerebral Palsy N Neck Problems N Back Problems N Asthma N Epilepsy/Seizures N Bipolar Disorder N Sleep Disorder N Hepatitis N Aneurysm N Heart Disease N Osteoporosis N High Cholesterol or Hyperlipidemia N Past Encounters Encounter ID Performer Location Encounter Start Date Encounter Closed Date Diagnosis/Indication Diagnosis SNOMED-CT Code Diagnosis ICD10 Code Diagnosis Note [id number] Morris Barcenas MD [facility] [address] [place] [address] [place] [id number] 03/06/2023 12:55:32 03/08/2023 11:02:13 Degenerative lumbar spinal stenosis 028454465 M48.061 Disorder of neck 2682092 00 M50.022 Oral dyskinesia 84244682 1 G24.4 Essential tremor 7404724 09 G25.0 Health Concerns Section Related Observation LastModified by Organization Detai ls LastModified Time None Recorded Concern Status LastModified by Organization Details LastModified Time None Recorded Advance Directives Directive None Recorded Payers Encounter Date Sequence Insurance Name Policy Number Policy Patel Covered Member ID Patel Member ID Guarantor Name 03/06/2023 1 [facility]ATED [facility]IN [facility] HP - DOS ON OR AFTER 2022 - LOCATED [facility]IN [facility] (MEDICAID REPLACEMENT - HMO) Eugene Fountain [id number] Eugene Fountain Notes Date Note Type Note Provider Name and Address Organization Details Recorded Time 03/06/2023 text/html He presents for initial neurology evaluation for multiple concerns ? m y body is getting older and breaking down? has questions related to self-reported history of ischemic stroke, cervical myelopathy and questions relating to dopaminergic agents, initially referred for lumbar radiculopathy. He is unaccompanied. I asked him for clarification of the reason that he is here today having noted history of cervical radiculopathy per PCP note and recent lumbar XR and MR imaging. He tells me that he is getting older and his body is breaking down and that he has some degeneration of his spine. He says that he also has a history of substance abuse and that he has stopped drinking and stops marijuana and he has been clean for a few years. He denies intravenous drug use (although later it comes up in a more remote history of timing unclear to me but assures me not recent) He has a list of questions. He is not sure if he has residual deficits from an ischemic stroke. He says he has a C-spine with myelopathy. 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 He says that 1 day he awoke with paralysis of the left side but there was also some nerve pain. For example, his pump tender on the left is not as good as it should be and left wrist extension is weaker but flexion is okay. He thinks that okay was related to stimulants, I asked specifically if it was cocaine which he replies amphetamines. He says while he knows it is unrelated, he just took a cardiac stress test and that was fine. 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 I asked about any radiating leg pain as the referral reason is noted to be lumbar radiculopathy: He tells me that when he saw his PCP, he was having pain radiating into the legs, the right more than left and he was getting paresthesias at the bottom of his feet but he has been doing yoga since then and it is gotten much better. He goes on to explain that he is very exercise compliant and that he just wanted a checkup from a neurologist like a comprehensive work-up. He has a list of symptoms and is not sure if what there is related to the stroke or to the spine or if he might be hypochondriacal. He states that he has C5-6, C6, C7 compression with myelopathy and that he saw neurologist Dr. Cabral who was pushing for surgery. He tells me that he saw 2 surgeons and 1 told him to have surgery and 1 did not. He saw Dr. Trevizo in [place] and elected not to move forward with surgery because the outcome is not guaranteed. He tells me that he did not actually see the local surgeon but was already can be planned for an appointment for effusion without a discussion and so he opted not to do that. This was all in the last 1 and half years. He states that he first started noticing symptoms when he had weakness in the left hand at the gym and then he had a needle study/EMG which prompted the MRI. I asked about the timing of the hospitalization where he said he had ischemic stroke anything that may be about 3 years before but he explains that he has had a number of hospitalizations in part because of his drug use and that he had a cellulitis from injecting 10 years ago and had a surgery in the left upper extremity, he has been in induced, before with prolonged 2-week intubation. The neck issue was more recent. He has written list-The vision has been blurry. It is getting worse even though he wears glasses and saw an manager of corporate recently-He has brought attention problems -he wonders if this is from brain damage or from strokes or not enough oxygen getting to his brain in the past or from concussions-He has severe insomnia-He wonders if dopaminergic drugs could cause a long-term problem-He has noted a palsy in his face, constant it is particularly notable when speaking where he tends to activate the muscles on the right side more than the left and feels like he is unable to relax it: He wonders if this could be a neurodegenerative problem -and here, he mentions that because of his history of substance abuse that he finds that people (meaning the medical community) can be very dismissive and that he finds that he really has to advocate for himself-He has noticed subtle speech problems, in particular, he has been learning Telugu and he has difficulty with pronunciation and feels like his tongue is not working properly.-He has occasional difficulty with balance even though he is motivated and works outThe list above was incomplete and I asked him to make a checkbox at the point where we left off He mentions that he will be seeing psychiatry. He has brought in lumbar x-ray and March 2022 physical therapy, with home exercises, for balance and gait training. 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 He did not bring images that demonstrate the prior history of ischemic stroke nor the cervical myelopathy. He believes these were done either at [facility] or at [facility] [place] Medicatons per patient: Clonazepam 2 mg every evening, pantoprazole 20 mg every morning, baclofen 20 mg 3 times daily (he says this is for spine stuff in particular some neck discomfort and some difficulty with the levator scapulae on the left and because of a clavicle that is off on the left where the fibers are not recruiting properly), pregabalin 75 mg 3 times dailyAllergies to Haldol and propofolPast medical history per patient: Anxiety GERD, IBS, disorder, strokeFamily history hypertension and neuropathy in his mother Morris Barcenas MD [address] [place] [address] [place], [phone], [facility] 03/07/2023 18:35:27
[2024-08-23] MEDS: HYDROmorphone HCl 1 MG/ML SYRINGE IM (15:54)
[2024-08-23 15:57] VITALS: BP 153/67; PULSE 75; RESP 18; TEMP 36.4; O2SAT 96
== END 2024-08-23 15:59 | disposition home or self-care (01) ==
PROVIDERS: Physician Assistant; Emergency Provider Emergency Medicine Emergency Medical Services; PCP Pediatrics
DX: G89.29 Other chronic pain (principal); M54.50 Low back pain, unspecified; Z79.899 Other long term (current) drug therapy
CPT/HCPCS: 36415; 72100; 73502; 80048; 80076; 83735; 85025; 96372; 99282; 99284; J1171

== ENCOUNTER → 2024-08-23 14:42 | Outpatient (BNV) | payer OTHER, SELFPAY | PROVIDERS: Emergency Provider Emergency Medicine Emergency Medical Services; PCP Pediatrics; Visit Provider Radiology Diagnostic Radiology | DX: M25.551 Pain in right hip (principal); M54.50 Low back pain, unspecified | CPT/HCPCS: 72100; 73502 ==

== ENCOUNTER 2024-09-26 11:13 | Outpatient (AMB) | payer OTHER, SELFPAY ==
--- NOTE | 2024-09-26 11:36 | MHC.OFFVIS ---
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 Intake Note: Pt's BP grossly elevated - he states he runs that high sometimes Cleaning Maid Required: No Allergies haloperidol [From HALDOL] Allergy (Severe, Verified 09/26/24 11:38) RESP DISTRESS Phenothiazines [PHENOTHIAZINES] Allergy (Unknown, Verified 09/26/24 11:38) EPS propofol Allergy (Verified 09/26/24 11:38) Unknown Medication List - Last Reconciled 09/26/24 by Bonny Banks LPN baclofen 20 mg PO TID clonazepam 2 mg PO DAILY PRN diclofenac sodium 75 mg PO BID ergocalciferol (vitamin D2) 1,250 mcg PO QWEEK ibuprofen 600 mg PO Q6H PRN lemborexant (Dayvigo) 10 mg PO DAILY lisinopril 20 mg PO DAILY mirtazapine 45 mg PO BEDTIME pantoprazole 40 mg PO DAILY pregabalin 150 mg PO TID temazepam 30 mg PO BEDTIME PRN HPI HPI 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 Pain radiates from the lower back to the legs and feet, described with sensations of numbness and radiculopathy. Pain levels fluctuate, with mornings being the most severe at 10/10, decreasing to 5/10 later in the day. The patient has a history of lumbar spinal stenosis and disc degeneration at L5-S1, confirmed radiographically. He has been utilizing physical therapy and chiropractic interventions for management, though with limited success. Current medications include pregabalin and clonazepam. Past discussions about surgical interventions have resulted in reluctance primarily due to concerns about procedures. The patient also struggles with sleep apnea and intends to trial a CPAP machine for sleep quality improvement. Pain Description - Onset and Timing: Started approximately two months ago. - Quality and Character: Pain is severe in the morning, described as a numbing sensation and radiculopathy. - Location: Lower back, radiating to calves and feet. - Exacerbating Factors: Worst in the morning. - Relieving Factors: Improves during the course of the day to a 5/10. - Interference: Affects sleep, with high levels of fatigue after walking or activity. Physical Exam - Appears afebrile. - Alert and oriented. - Mood and affect appropriate. - Follows and participates in conversation appropriately. - Respiratory effort is unlabored. - Able to transition from sit to stand unassisted. - Ambulates with bilaterally normal heel strike and toe off. - Able to stand and walk on toes and heels. Results - X-ray: Lumbar spine showing degeneration of L5-S1 discs. - MRI: Previously completed with findings not explicitly detailed in the current report. Pain Management - Affect: Patient exhibits stress and anxiety related to pain and potential interventions. - Analgesia: Currently on pregabalin and clonazepam, reports persistent pain. - Adverse Effects: No specific adverse effects from medications reported. - Activities of Daily Living: Pain affects sleep and causes notable fatigue post-exercise. - Aberrant Drug Related Behaviors: No evidence of medication misuse or abuse. [facility] Social History Alcohol intake: never Physical Exam Vital Signs: Last Vital Signs Pulse 100 09/26/24 11:37 Resp 16 09/26/24 11:37 BP 169/100 H 09/26/24 11:37 Pulse Ox 99 09/26/24 11:37 Oxygen Delivery Method Room Air 09/26/24 11:37 BMI result Body Mass Index 28.0 Assessment & Plan Assessment & Plan (1) Lumbar radicular pain: Code(s): M54.16 - Radiculopathy, lumbar region Category: Medical Plan Plan - Continue physical therapy and walking to tolerance. - Consider epidural injections if conservative measures fail. - Avoid activities increasing lumbar injury risk. - Provide MRI disc for further evaluation if persistent symptoms. - Plan follow-up for reassessment of management and CPAP effectiveness. Patient was informed and verbally consented to the use of an ambient scribe for clinic note documentation during this visit. Discussion Notes I discussed with the patient the diagnosis and management options for his chronic low back pain, emphasizing non-surgical interventions. The benefits and risks of an epidural injection were reviewed, including the potential risks of tissue breakdown with repeated injections and the need for severe, unmanaged pain to justify the procedure. The potential role of the CPAP machine in improving sleep quality was also highlighted. Additionally, I offered reassurance about the avoidance of unnecessary procedures and stressed the importance of a conservative approach. I advised the patient to bring his MRI records for a more detailed future evaluation and discussed follow-up in six to eight weeks to review the effectiveness of current management strategies and make further recommendations. Patient Instructions - Continue physical therapy exercises and walk as tolerated. - Use CPAP machine every night for sleep apnea. - Monitor pain levels and report significant changes. - Avoid high-risk activities. - Bring the MRI disc or login information for the next visit. - Schedule a follow-up appointment in six to eight weeks. Coding Level of Care Code New Pt Level 3 (40656) Diagnoses Lumbar radicular pain M54.16
[2024-09-26 11:37] VITALS: BP 169/100; PULSE 100; RESP 16; O2SAT 99; BMI 28.0
--- OUTSIDE RECORDS SUMMARY | 2024-09-26 11:41 | XMS_ITS | Data Portability ---
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 [address] [place], [address], 03/06/2023 16:19:05 03/07/2005/30/2022 CT, head, w/o contr ast No observ ation record ed. [address], [address], 03/12/2023 13:53:20 03/07/2004/16/2022 CT, angio gram, head + neck, w/wo contr ast No observ ation record ed. [email or web address] Not Available 2022 11:52:10 Result Notes None recorded. Procedures Surgical History Date Name Laterality Status Provider Name and Address Organization Details Recorded Time 03/06/2023 DATA REVIEW completed STAN BARNETT PA-C [address] [place] [address], [phone], [facility] 03/06/2023 20:52:00 Imaging Results Imaging Date Name Status LastModified by [facility] Details LastModified Time 01/05/2023 [facility] [place], [address], 03/06/2023 16:19:05 05/30/2022 CT, head, w/o contrast completed [facility] [address] [place], [address], 03/12/2023 13:53:20 04/16/2022 CT, angiogram, head + [...] available Not available 03/06/[address] [facility] 3 13:09:28 3238 propofol medicatio n Not available Not available Not available 03/06/[address] [facility] 13:09:35 Medications Name Sig Start Date Stop [...] Updated DateTime 03/06/2023 185.42 cm 27 kg/m2 18149.44 g 12 /min Stan Johnson [facility] 03/06/2023 13:09:18 Social History None recorded. Functional Status None recorded. Mental Status None recorded. Family History Relationship Description Onset Age of this Age Resolved Age Notes LastModified by Organization Details LastModified Time Mother Hypertensive disorder [email or web address] Not available 2022 13:10:34 Mother Neuropathy Not available 03/06/2023 13:10:47 Medical History Condition Response Claustrophobia N Head Trauma/Injury N Hospitalizations N High Blood Pressure or Hypertension Y Thyroid Problems N Depression N Brain Tumors N Lung Disease N COPD or emphysema N Encephalitis N PTSD N Vitamin B12 deficiency N Heart Attack ([place]) N Spine Problems N Obstructive Sleep Apnea N Alcoholism N Diabetes N Autoimmune disease N Bleeding Disorder N Arthritis N Cerebral Palsy N Tuberculosis N Developmental Problems N Neck Problems N Cancer N Back Problems N Stroke Y Asthma N Heartburn, acid reflux, GERD Y Vitamin D Deficiency N Epilepsy/Seizures N Bipolar Disorder N Sleep Disorder N Aneurysm N Hepatitis N Liver Disease N Heart Disease N Fibromyalgia N Headaches N High Cholesterol or Hyperlipidemia N Osteoporosis N Kidney Disease N Past Encounters Encounter ID Performer Location Encounter Start Date Encounter Closed Date Diagnosis/Indication Diagnosis SNOMED-CT Code Diagnosis ICD10 Code Diagnosis Note [id number] STAN BARNETT PA-C [facility] [address] [place] [address] [place] [id number] 03/06/2023 12:55:32 03/08/2023 11:02:13 Degenerative lumbar spinal stenosis 697368762 M48.061 Disorder of neck 0602012 00 M50.022 Oral dyskinesia 69072677 1 G24.4 Essential tremor 5288694 09 G25.0 Health Concerns Section Related Observation LastModified by Organization Detai ls LastModified Time None Recorded Concern Status LastModified by Organization Details LastModified Time None Recorded Advance Directives Directive None Recorded Payers Encounter Date Sequence Insurance Name Policy Number Policy Patel Covered Member ID Patel Member ID Guarantor Name 03/06/2023 1 [facility] HP - DOS ON OR AFTER 2022 - [facility] (MEDICAID REPLACEMENT - HMO) Eugene Fountain [id number] Eugene Fountain Notes Date Note Type Note [...] also some nerve pain. For example, his tape maker on the left is not as good [...] did not. He saw Dr. Trevizo in [place] and elected not to move forward with [...] though he wears glasses and saw an retail wireless sales consultant recently-He has brought attention problems -he wonders [...] problems, in particular, he has been learning Armenian and he has difficulty with pronunciation and [...] He believes these were done either at [facility] or at [facility] in [place] Medic[facility] per patient: Clonazepam 2 mg every [...] neuropathy in his mother Morris Barcenas MD [address] [place] [address] [place], [phone], [facility] 03/07/2023 18:35:27
== END 2024-09-26 12:21 | disposition home or self-care (01) ==
LOC: HO.PMC 11:14
PROVIDERS: PCP Pediatrics; Visit Provider Internal Medicine
DX: M54.16 Radiculopathy, lumbar region (principal)
CPT/HCPCS: 99203

== ENCOUNTER → 2024-09-26 11:13 | Outpatient (BNVA) | payer OTHER, SELFPAY | PROVIDERS: PCP Pediatrics; Visit Provider Internal Medicine ==

== ENCOUNTER 2024-11-19 09:38 | Outpatient (AMB) | payer OTHER, SELFPAY ==
--- NOTE | 2024-11-19 09:50 | A.OFFVIS_ITS ---
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 Sas Required: No Allergies haloperidol (From HALDOL) Allergy (Severe, Verified 11/19/24 09:52) RESP DISTRESS Phenothiazines (PHENOTHIAZINES) Allergy (Unknown, Verified 11/19/24 09:52) EPS propofol Allergy (Verified 11/19/24 09:52) Unknown Medication List - Last Reconciled 11/19/24 by Bonny Banks, ELIGIO clonazepam (Klonopin) 2 mg PO BEDTIME 30 days ergocalciferol (vitamin D2) 1,250 mcg PO QWEEK ibuprofen 600 mg PO Q6H PRN lemborexant (Dayvigo) 10 mg PO DAILY lisinopril 20 mg PO DAILY mirtazapine 45 mg PO BEDTIME pantoprazole 40 mg PO DAILY pregabalin 150 mg PO TID tizanidine 4 mg PO TID PRN triazolam 0.5 mg PO BEDTIME PRN HPI HPI 6 WEEK FOLLOW UP: Details: History of Present Illness The patient is a 43-year-old male presenting for follow-up after a trial of physical therapy and review of MRI results. The MRI revealed intervertebral disc degeneration with a small disc bulge and mild endplate changes at L5-S1, but no significant chronic changes were observed. The patient reports experiencing discogenic pain, which is attributed to the early stages of disc degeneration. The patient has been engaging in physical therapy, which initially helped decrease the lordotic curve, allowing him to keep his back on the ground during exercises. However, he experiences increased back tightness after walking, particularly when walking uphill, despite efforts to build leg muscles. The patient has a history of anxiety disorder and insomnia, for which he is taking multiple medications, including triazolam, clonazepam, Dayvigo, and mirtazapine. He reports that mirtazapine may be contributing to increased hunger and weight gain, as he recently weighed in at 220 pounds. The patient is also taking pregabalin, which he is hesitant to discontinue due to previous withdrawal symptoms when he ran out of the medication. Pain Description - Pain is described as discogenic, originating from early disc degeneration. - Pain exacerbated by walking, especially uphill, leading to increased back tightness. - Physical therapy initially helped reduce lordotic curve and improve back positioning during exercises. Physical Exam - Appears afebrile. - Alert and oriented. - Mood and affect appropriate. - Follows and participates in conversation appropriately. - Respiratory effort is unlabored. - Able to transition from sit to stand unassisted. - Ambulates with bilaterally normal heel strike and toe off. - Able to stand and walk on toes and heels. Results - MRI: Intervertebral disc degeneration with small disc bulge and mild endplate changes at L5-S1. Pain Management - Affect: Anxiety disorder and insomnia impacting psychological wellbeing. - Analgesia: Current medications include pregabalin, triazolam, clonazepam, Dayvigo, and mirtazapine. - Adverse Effects: Mirtazapine may contribute to increased hunger and weight gai n. - Activities of Daily Living: Pain affects walking, especially uphill, causing increased back tightness. - Aberrant Drug Related Behaviors: None reported. [facility] Social History Alcohol intake: never Physical Exam Vital Signs: Last Vital Signs Pulse 77 11/19/24 09:51 Resp 16 11/19/24 09:51 BP 154/90 H 11/19/24 09:51 Pulse Ox 9 L 11/19/24 09:51 Oxygen Delivery Method Room Air 11/19/24 09:51 BMI result Body Mass Index 29.3 Assessment & Plan Assessment & Plan (1) Lumbar radicular pain: Code(s): M54.16 - Radiculopathy, lumbar region Category: Medical Plan Plan - Recommend strengthening core muscles to alleviate pressure on the disc. - Suggest swimming for 45 minutes to an hour to provide weightless exercise and strengthen core muscles. - Consider using an inversion table to relieve disc pressure. - Prescribed etodolac as an alternative to diclofenac and ibuprofen for pain management. - Discuss potential discontinuation of mirtazapine with sleep specialist due to weight gain concerns. Patient was informed and verbally consented to the use of an ambient scribe for clinic note documentation during this visit. Discussion Notes I discussed with the patient the findings of the MRI, which showed intervertebral disc degeneration and a small disc bulge, likely causing his symptoms. We talked about the nature of discogenic pain and the lack of FDA- approved treatments for direct disc intervention at this time. I recommended strengthening the core, swimming, and using an inversion table as non-invasive methods to manage his condition. We also discussed the patient's current medication regimen, including the pot ential side effects of mirtazapine, and I prescribed etodolac for pain management. I advised the patient to consult with his sleep specialist regarding the impact of mirtazapine on his weight. Patient Instructions - Strengthen your core muscles regularly to reduce disc pressure. - Swim for 45 minutes to an hour to strengthen your core and relieve disc pressure. - Use an inversion table to help relieve disc pressure. - Take etodolac as prescribed for pain management. - Discuss with your sleep specialist about the potential impact of mirtazapine on your weight. Medications: New etodolac 500 mg PO Q12H PRN 60 tabs 0RF pain Discontinued ibuprofen Discontinued Reason: Duplicate 600 mg PO Q6H PRN 20 tabs 0RF pain Coding Level of Care Code Est Pt Level 4 (92298) Diagnoses Lumbar radicular pain M54.16
[2024-11-19 09:51] VITALS: BP 154/90; PULSE 77; RESP 16; O2SAT 9; BMI 29.3
--- OUTSIDE RECORDS SUMMARY | 2024-11-19 10:00 | XMS_ITS | Data Portability ---
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 Results Created Date Observation Date Name Description Value Unit Range Abnormal Flag Note LastModifiedBy Organization Detail LastModifiedTime 03/05/2001/05/2023 MRI, lumba r spine , w/o contr ast No observ ation record ed. [email or web address] [address], [place], [address], 03/06/2023 16:19:05 03/07/2005/30/2022 CT, head, w/o contr ast No observ [facility]ion [facility] ed[facility] [address] [facility], [place], [address], 03/12/2023 13:53:20 03/07/2004/16/2022 CT, angio gram, head + neck, w/wo contr ast No observ ation record ed. [email or web address] Not Available 2022 11:52:10 Result Notes None recorded. Procedures Surgical History Date Name Laterality Status Provider Name and Address Organization Details Recorded Time 03/06/2023 DATA REVIEW completed STAN BARNETT PA-C [address] [place] [address], [phone], [facility] 03/06/2023 20:52:00 Imaging Results None recorded. Procedure Notes None recorded. Medical Equipment None Reported. Allergies Allergen ID Allergen Name Allergen Category Reaction Reaction Severity Criticality Documentation Date Start Date Code Code System Note Provider Name and Address Organization Details Recorded Time 3237 haloperid ol medicatio n Not available Not available Not available 03/06/2023 5093 RxNorm Stan heard [facility] 13:09:28 3238 propofol medicatio n Not available Not available Not available 03/06/2023 8782 RxNorm Stan Johnson [facility] 3 13:09:35 Medications Name Sig Start Date Stop [...] Updated DateTime 03/06/2023 185.42 cm 27 kg/m2 16032.44 g 12 /min Stan Johnson [facility] 03/06/2023 13:09:18 Social History None recorded. Functional Status None recorded. Mental Status None recorded. Family History Relationship Description Onset Age of this Age Resolved Age Notes LastModified by Organization Details LastModified Time Mother Hypertensive disorder [email or web address] Not available 2022 13:10:34 Mother Neuropathy [email or web address] Not available 03/06/2023 13:10:47 Medical History Condition Response Claustrophobia N Head Trauma/Injury N Hospitalizations N High Blood Pressure or Hypertension Y Thyroid Problems N Depression N Brain Tumors N Lung Disease N COPD or emphysema N Encephalitis N PTSD N Vitamin B12 deficiency N Heart Attack ([place]) N Spine Problems N Obstructive Sleep Apnea [...] SNOMED-CT Code Diagnosis ICD10 Code Diagnosis Note [id number] STAN BARNETT PA-C [facility] [address] [place] [address] [place] [address] 03/06/2023 12:55:32 03/08/2023 11:02:13 Degenerative lumbar spinal stenosis 031661833 M48.061 Disorder of neck 2594220 00 M50.022 Oral dyskinesia 90327010 1 G24.4 Essential tremor 3185950 09 G25.0 Health Concerns Section Related Observation LastModified by Organization Detai ls LastModified Time None Recorded Concern Status LastModified by Organization Details LastModified Time None Recorded Advance Directives Directive None Recorded Payers Insurance Date Sequence Insurance Name Policy Number Policy Patel Covered Member ID Patel Member ID Guarantor Name 03/12/2023 1 [facility] HP - DOS ON OR AFTER 2022 - [facility] (MEDICAID REPLACEMENT - HMO) Eugene Fountain [id number] Eugene Fountain Notes Date Note Type Note Provider Name and Address Organization Details Recorded Time 03/06/2023 text/html He presents for initial neurology evaluation for multiple concerns my body is getting older and breaking down has questions related to self-reported history of [...] also some nerve pain. For example, his fine grader on the left is not as good [...] did not. He saw Dr. Trevizo in [place] and elected not to move forward with [...] though he wears glasses and saw an reel slitter recently-He has brought attention problems -he wonders [...] problems, in particular, he has been learning Faroese and he has difficulty with pronunciation and [...] He believes these were done either at [facility] or at [facility] in [place] Medicatons per patient: Clonazepam 2 mg every [...] neuropathy in his mother Morris Barcenas MD [address] [place] [address] [place], [phone], [facility] 03/07/2023 18:35:27
== END 2024-11-19 10:17 | disposition home or self-care (01) ==
LOC: HO.PMC 09:38
PROVIDERS: PCP Pediatrics; Visit Provider Internal Medicine
DX: M54.16 Radiculopathy, lumbar region (principal)
CPT/HCPCS: 99214

== ENCOUNTER 2025-03-17 17:02 | Emergency (ER) | payer OTHER, SELFPAY ==
--- OUTSIDE RECORDS SUMMARY | 2025-03-12 10:17 | XMS_ITS | Encounter Summary ---
Author Organization [facility] Address [address] [place] [address] Care Team Providers Care Wrapper Rewinder Name Role Phone Ref, Has No Pcp Or Primary Care Provider Unavail able Reason for Visit * Reason Comments Panic Attack Encounter Details Date Type Department Care Team (Late st Contact Info) Description 03/12/2025 10:17 AM EDT - 03/12/2025 2:39 PM EDT Emergency [facility] Emergency Department [address] [place] [address] Ankita Paz DO [address] [place] [address] Panic attack (Primary Dx) Discharge Disposition: Home or Self Care () Social History Tobacco Use Types Packs/Day Years Used Date Smoking Tobacco: Never Assessed Sex and Gender Information Value Date Recorded Sex Assigned at Not on file Legal Sex Male 8:19 AM EDT Gender Identity Not on file Sexual Orientation Not on file documented as of this encounter Last Filed Vital Signs Vital Sign Reading Time Taken Comments Blood Pressure 115/79 03/12/2025 11:03 AM EDT Pulse 100 03/12/2025 11:03 AM EDT Temperature 36.3 C (97.4 F) 03/12/2025 8:24 AM EDT Respiratory Rate 22 03/12/2025 11:03 AM EDT Oxygen Saturation 99% 03/12/2025 11:03 AM EDT Inhaled Oxygen Concentration - - Weight - - Height - - Body Mass Index - - documented in this encounter Discharge Instructions * Discharge Instructions* Ankita Paz DO - 03/12/2025 2:19 PM EDT You were seen in emergency room for your anxious symptoms. Please follow-up with your primary care physician for reevaluation and further management of symptoms as needed. Please also seek a psychotherapist outpatient who can help you manage your symptoms. You can use the website psychology today to help you find a psychiatrist or therapist that will accept your insurance. Please try to get into another detox facility and avoid taking other substances while at home. * Attachments The following attachments cannot be sent through Care Everywhere. * Panic disorder (Guatem[place]) documented in this encounter Progress Notes * Yeny Natarajan MD - 03/12/2025 10:36 AM EDT Face to Face Evaluation for Violent Restraints The patient presented a danger to themselves or others and was unable to be redirected verbally. They were restrained as noted in nursing documentation. The following medications were administered around the time of restraints being placed: droperidol The patient was subsequently evaluated at 03/12/2025 10:36 AM. Details are as noted below. Behavioral Assessment: Current condition: Restless Physical Assessment: Patient's vitals were reviewed. Heart rhythm: Regular and tachycardic Lungs: Clear Respiration: labored Skin: Diaphoretic Data Reviewed: HPI Reviewed Cosigned by Ankita Paz DO at 03/14/2025 9:34 AM EDT Associated attestation - Ankita Paz DO - 03/14/2025 9:34 AM EDT Attending to Resident/Fellow - I saw and evaluated the patient. I discussed the case with the resident(s)/fellow(s) and agree with the findings and plan as documented by the resident(s)/fellow(s). Fox elements, clarifications and/or exceptions are noted by me. Ankita Paz DO documented in this encounter ED Notes * Yeny Natarajan MD - 03/12/2025 8:19 AM EDT History HPI: Chief Complaint Patient presents with Panic Attack HPI Patient is a 44-year-old male past medical history of benzodiazepine abuse currently in rehab at [facility] for the last few weeks for benzo withdrawal, anxiety who presents to the ED today via EMS from [facility] for feelings of anxiety, panic and lack of sleep. He has been in [facility] for some time between 1 to 3 weeks for benzodiazepine withdrawal. He was seen as a code safety in the trauma bay for agitation and aggression towards staff in the waiting room, he was unable to be de-escalated by police and staff so brought him to the trauma bay in 4-point restraints. Patient was very tachypneic and panics on arrival, shaking in the restraints and was very stressed and clearly panicking. He states that he does not know what is going on he feels shaky dizzy nauseous and feels like his heart is racing. Patient History No past medical history on file. No past surgical history on file. No family history on file. Sexuality and Gender Identity Sexuality Legal Information Legal first name: Eugene Legal last name: Александр Legal sex: Male Gender Identity Organ Inventory Organs the patient currently has: Organs present at or expected at to develop: Organs surgically enhanced or constructed: Organs hormonally enhanced or developed: breasts cervix ovaries uterus vagina penis prostate testes Review of Systems REVIEW OF SYSTEMS: Physical Exam Physical Exam ED Triage Vitals [03/12/25 0824] Temp Heart Rate Resp BP SpO2 36.3 ??C (97.4 ??F) 92 21 (!) 186/112 98 % Temp Source Heart Rate Source Patient Position BP Location Set FiO2 (O2%) Oral Monitor Lying Right arm -- Physical Exam Vitals and nursing note reviewed. Constitutional: Appearance: He is well-developed. HENT: Head: Normocephalic and atraumatic. Mouth/Throat: Mouth: Mucous membranes are moist. Eyes: Conjunctiva/sclera: Conjunctivae normal. Cardiovascular: Rate and Rhythm: Regular rhythm. Tachycardia present. Heart sounds: No murmur heard. Pulmonary: Effort: No respiratory distress. Breath sounds: Normal breath sounds. Comments: Pantins/tachpneic Abdominal: Palpations: Abdomen is soft. Tenderness: There is no abdominal tenderness. Musculoskeletal: General: Normal range of motion. Cervical back: Neck supple. Skin: General: Skin is warm and dry. Neurological: Mental Status: He is alert and oriented to person, place, and time. Comments: Agitated/aggresive Medical Decision Making and ED Course MDM Patient is a 44-year-old male past medical history of benzodiazepine abuse currently in rehab at [facility] for the last few weeks for benzo withdrawal, anxiety who presents to the ED today via EMS from [facility] for feelings of anxiety, panic and lack of sleep. Patient agitated and activated as a code safety, was yelling and aggressive with staff in the waiting room. He was very panicked, sweating,shaky, clenched up arms, as well as very tachycardic and tachypneic. We were able to verbally de-escalate patient successfully and gave him 5 mg of IM droperidol. Per his request we avoided benzodiazepines in the setting of his recent detox. Discussed with patient that we would de-escalate restraints as soon as he remained calm and that he should focus on getting some rest as he has not been getting sleep in the last few days and this could be contributing to his symptoms of panic. Patient doing very well, napping comfortably able to de-escalate restraints in a timely and controlled fashion. He is feeling much better, vitals have stabilized BP and heart rate no longer elevated and he is feeling much better. Requesting that he go back to detox, discussed with social work to see if he could go back to [facility] detox, unfortunately they are unable to accept him at this time. Raghu donohue hemodynamically stable at the time of discharge and discussed strict return precautions as well as receiving psychologic help outpatient for his continued concerns and panic. ED Course as of 03/12/25 1431 Laya Mar 12, 2025 1149 Late entry secondary to patient care. This is a 44-year-old male with PMH pertinent for benzodiazepine abuse, recently at detox facility x 1 week for benzo use, who is presenting from the same detox facility due to anxiety. Patient reports he feels like he is having anxiety attack, I feel likehim to , I am having chest pain. Denies all the symptoms. Has not taken any medication for symptoms. He denies wanting benzodiazepines for treatment of symptoms. Denies other substance use including EtOH, tobacco, stimulants. On exam, patient is tremulous diffusely, appears anxious, has rapid speech, is resisting medical interventions including blood pressure O2 sat cardiac monitoring despite reassurance. He is slightly able to be redirected and can take deep breaths which lowers his heart rate from 150 to 125 and also improves his blood pressure from 201/164 to 150's systolic. He has no intention tremor, tongue fasciculation, rigors, clonus. Heart tachycardic, regular rate. Lungs CTAB/L. Abdomen soft nontender. Primary suspicion is for anxiety attack, however this would be diagnosis of exclusion. Will also consider ACS and obtain troponin and EKG. Consider substance use such as stimulant, however the pupils are not pinpoint. Given the patient's significant agitation, refusal of medical interventions, andthreat to safety of patient and staff, the decision was made to give him droperidol 5 mg IM. Patient reports a history of EPS symptoms with Haldol, will continue to monitor for the symptoms and consider benztropine if he develops them. Will continue to monitor on telemetry. Patient is currently in restraints but is compliant when redirected, therefore anticipate he will be out of restraints soon.[DS] 1153 CK(!): 529 Slightly elevated, do not suspect rhabdo based on no BORIS. Will give IVF. [DS] 1358 I have reevaluated the patient. He is out of restraints. He has complete resolution of his symptoms and is now cooperative, without anxious symptoms. VS have returned to normal with improved BP and HR. Pt reports he would like to leave and return to detox if possible. Given reasurring work up improvement of sx and no EPS sx after droperidol, will engage social work. [DS] 1418 runner worker has seen the patient. He now does not want to go back to a rehab facility. [facility] additionally will not accept him back. Given that he is stable, will discharge him in stable condition. Return precautions were provided. Questions answered. Stable at time of discharge. [DS] ED Course User Index [DS] Ankita Paz DO Eugene Fountain : 1980 CSN: [id number] Yeny Natarajan MD Resident 03/12/25 1436 Cosigned by Ankita Paz DO at 03/14/2025 9:35 AM EDT Associated attestation - Ankita Paz DO - 03/14/2025 9:35 AM EDT I saw, examined and evaluated the patient, discussed the case with the resident/fellow/MARGY and agree with the findings and plan as documented in the record. Fox elements, clarifications and/or exceptions are noted by me. I am responsible for a substantial portion of the medical decision making which included a review of the patient's condition, diagnostic tests, and approving the treatment plan. See ED course for my impressions. Ankita Paz DO Emergency Medicine Eugene Fountain : 1980 CSN: [id number] documented in this encounter Miscellaneous Notes * Plan of Care - WHITLEY Dennis - 03/12/2025 2:19 PM EDT Reason for Consult: Pt is a 44 y.o. male who presents to the hospital with Panic attack [F41.0]. Social work was consulted by MD for discharge options - ?return to [facility]. Pt was at [facility] for benzo withdrawal for approx past 3 weeks, left today was treated here for panic attack, is doing well,and is inquiring if he can return. Data/Background: PRESS BREAKER spoke with [facility] admissions. They report that because pt chose to leave this morning, they do not have a bed for him and he would need to wait 48 hours to return. PRESS BREAKER met withpt at bedside in ED [facility]. Introduced self, role, reason for consult. Provided update. Pt wishes to discharge home with his mother and father and will follow-up from the community to research andchoose a new CSS program. Pt's father confirms agreement with this plan. Pt denies need for any resources. MD updated. Plan/Recommendations: -Pt will DC home and follow-up to re-enter treatment from the community. WHITLEY Dennis 03/12/2025 2:22 PM documented in this encounter Plan of Treatment Not on file documented as of this encounter Procedures * Due to [place] state law, this organization might not be sharing negative HIV tests. Procedure Name Priority Date/Time Associated Diagnosis Comments ECG 12-LEAD STAT 03/12/2025 8:49 AM EDT POCT GLUCOSE Routine 03/12/2025 8:41 AM EDT TROPONIN T HIGH SENSITIVITY STAT Add-on 03/12/2025 8:35 AM EDT CBC AUTO DIFFERENTIAL STAT 03/12/2025 8:35 AM EDT CK STAT Add-on 03/12/2025 8:35 AM EDT BASIC METABOLIC PANEL STAT 03/12/2025 8:35 AM EDT HEART & VASCULAR - SCANNED 03/12/2025 documented in this encounter Results * Due to [facility] law, this organization might not be sharing negative HIV tests. * ECG 12 lead (03/12/2025 8:49 AM EDT) Ventricular Rate EKG 100 BPM MUSE EKG Atrial Rate 100 BPM MUSE EKG CA Interval 140 ms MUSE EKG QRS Interval 82 ms MUSE EKG QT Interval 346 ms MUSE EKG QTC Interval 446 ms MUSE EKG P [place] 65 degrees MUSE EKG R [place] 40 degrees MUSE EKG T Wave [place] 46 degrees MUSE EKG 03/12/2025 8:49 AM EDT 03/17/2025 11:47 AM EDT Impressions MUSE EKG - 03/17/2025 11:47 AM EDT NORMAL SINUS RHYTHM POSSIBLE LEFT ATRIAL ENLARGEMENT BORDERLINE ECG NO PREVIOUS ECGS AVAILABLE Confirmed by Jesus Quinteros ([id number]) on 03/17/2025 11:47:11 AM Narrative Procedure Note O'Jesus Hardin MD - 03/17/2025 IMPRESSION: NORMAL SINUS RHYTHM POSSIBLE LEFT ATRIAL ENLARGEMENT BORDERLINE ECG NO PREVIOUS ECGS AVAILABLE Confirmed by Jesus Quinteros ([id number]) on 03/17/2025 11:47:11 AM us Ankita Paz DO ECG ORDERABLES Final Resu lt MUSE EKG * (ABNORMAL) POCT Glucose, interfaced (03/12/2025 8:41 AM EDT) Glucose, POCT 110(H) 70 - 99 mg/dL 03/12/2025 8:44 AM EDT [facility] Comment: The shipping checker has not determined the efficacy of this test in Critically ill patients. [facility] defines Critically ill patients for the purpose of blood glucose monitoring (BGM) by glucometer, as patients meeting one or more of the following criteria: Hypotension- non-ICU patients (systolic blood pressure Less than 90 mmHg) due to shock Hypotension -ICU patients (Mean Arterial Pressure (MAP) <60 mmHg or systolic blood pressure < 90 mmHg due to shock Patients receiving Vasopressors (phenylephrine, vasopressin or norepinephrine) Anasarca In all locations, BGM test results should not be relied upon in the above situations, unless these results confirmed with lab-based glucose values. Blood 03/12/2025 8:41 AM EDT 03/12/2025 8:44 AM EDT us Doctor Unknown LAB POCT ORDERABLES - DEVICE Fin al Result Performing Organization Address City/[facility] Co de Phone Number [facility] [address] [place] [address], * Troponin T, High Sensitivity (03/12/2025 8:35 AM EDT) Troponin T High Sensitivity 6 <=21 ng/L 03/12/2025 1:05 PM EDT [facility] Systems[facility] Comment: [id number] level of 52 ng/L or higher at 0-hour at presentation is recommended by the ESC 0/1-hour algorithm for identifying patients at high risk for ruling in acute myocardial infarction (AMI) in the appropriate clinical context. Repeat troponin testing 1-3 hours after the initial sample may be helpful in assessing for ongoing myocardial injury. Troponin elevations can be seen in several other non-infarct conditions, and the change (delta) should be evaluated in line with the 4th [place] Definition of AMI. Troponin baseline and serial elevation for a significant delta should be interpreted with clinical presentation, history, signs and symptoms, ECG, and biomarker concentrations. For inpatient setting: Value <12ng/L is considered negative for all genders. 0-1hr: A delta change of <3 will be considered negative/flat if chest pain onset >3 hours 0-3hr: A delta change of <7 will be considered negative/flat Blood Structure of peripheral vein / Unknown Venipuncture / Unknown 03/12/2025 8:35 AM EDT 03/12/2025 8:49 AM EDT Ankita Paz DO LAB BLOOD ORDERABLES Final Result Performing Organization Address City/[facility]/ZIP Co de Phone Number [facility] [address] [place] [address], * (ABNORMAL) Creatine Kinase (03/12/2025 8:35 AM EDT) CK 529(H) 49 - 348 U/L 03/12/2025 11:27 AM EDT [facility] Blood Structure of peripheral vein / Unknown Venipuncture / Unknown 03/12/2025 8:35 AM EDT 03/12/2025 8:49 AM EDT Ankita Paz DO LAB BLOOD ORDERABLES Final Result Performing Organization Address City/[facility]/ZIP Co de Phone Number [facility] [address] [place] [address], * (ABNORMAL) Basic Metabolic Panel (03/12/2025 8:35 AM EDT) NA 138 135 - 145 mmol/L 03/12/2025 9:18 AM EDT [facility] K 4.1 3.5 - 5.3 mmol/L 03/12/2025 9:18 AM EDT [facility] Cl 103 97 - 110 mmol/L 03/12/2025 9:18 AM EDT [facility] CO2 20(L) 22 - 32 mmol/L 03/12/2025 9:18 AM EDT [facility] BUN 17 7 - 23 mg/dL 03/12/2025 9:18 AM EDT [facility] Networks[facility] Creatinine 0.64 0.60 - 1.30 mg/dL 03/12/2025 9:18 AM EDT [facility]LLConsano[facility] Glucose 132(H) 65 - 99 mg/dL 03/12/2025 9:18 AM EDT [facility] Calcium 9.7 8.6 - 10.5 mg/dL 03/12/2025 9:18 AM EDT [facility] Anion Gap 15 5 - 15 03/12/2025 9:18 AM EDT [facility] [place] eGFR >90 >=60 mL/min/1. 73m2 03/12/2025 9:18 AM EDT [employer] [facility] Comment:The estimated glomer ular filtration rate (eGFR) is calculated using a new formula developed by the NKF-ASN task force to eliminate race-based correction factors. The new formula uses serum/plasma creatinine, age, and gender to determine eGFR. A value below 60mls/min might indicate kidney disease and will be flagged. For additional information, see Gerardo et al, Am J Kidney Dis. 2021;79(2):268- 288, A Unifying Approach for GFR estimation: Recommendations of the NKF-ASN Task Force on Reassessing the Inclusion of Race in Diagnosing Kidney Disease . Blood Structure of peripheral vein / Unknown Venipuncture / Unknown 03/12/2025 8:35 AM EDT 03/12/2025 8:49 AM EDT us Ankita Paz DO LAB BLOOD ORDERABLES Final Result [facility] [address] [place] [address], [place] * (ABNORMAL) CBC Auto Differential (03/12/2025 8:35 AM EDT) WBC 10.6 3.8 - 10.8 10*3/uL 03/12/2025 8:57 AM EDT [facility] RBC 5.14 4.20 - 5.80 10*6/uL 03/12/2025 8:57 AM EDT [facility] Hemoglobin 16.3 13.2 - 17.1 g/dL 03/12/2025 8:57 AM EDT [facility] Hematocrit 44.9 38.5 - 50.0 % 03/12/2025 8:57 AM EDT [facility] MCV 87.4 80.0 - 100.0 fL 03/12/2025 8:57 AM EDT [facility] MCH 31.7 27.0 - 33.0 pg 03/12/2025 8:57 AM EDT [facility] MCHC 36.3(H) 32.0 - 36.0 g/dL 03/12/2025 8:57 AM EDT [facility] RDW 12.2 11.0 - 15.0 % 03/12/2025 8:57 AM EDT [facility] Platelets 215 140 - 400 10*3/uL 03/12/2025 8:57 AM EDT [facility] MPV 11.6 7.5 - 12.5 fL 03/12/2025 8:57 AM EDT [facility] Neutrophil % 86.1 % 03/12/2025 8:57 AM EDT [facility] Immature Grans % 0.2 0.0 - 0.9 % 03/12/2025 8:57 AM EDT [facility] Lymphocyte % 7.1 % 03/12/2025 8:57 AM EDT [facility] Monocyte % 6.5 % 03/12/2025 8:57 AM EDT [employer] [facility] Eosinophil % 0.0 % 03/12/2025 8:57 AM EDT [facility] Networks[facility] Basophil % 0.1 % 03/12/2025 8:57 AM EDT [facility] Neutrophil # 9.15(H) 1.50 - 7.80 10*3/uL 03/12/2025 8:57 AM EDT [employer] [facility] Immature Grans # <0.03 <=0.03 10*3/uL 03/12/2025 8:57 AM EDT [employer] [facility] Lymphocyte # 0.80(L) 0.85 - 3.90 10*3/uL 03/12/2025 8:57 AM EDT [employer] [facility] Monocyte # 0.70 0.20 - 0.95 10*3/uL 03/12/2025 8:57 AM EDT [employer] [facility] Eosinophil # <0.03 0.02 - 0.50 10*3/uL 03/12/2025 8:57 AM EDT [employer] [facility] Basophil # <0.03 0.00 - 0.20 10*3/uL 03/12/2025 8:57 AM EDT [employer] [facility] nRBC % 0.0 /100 WBCs 03/12/2025 8:57 AM EDT [employer] [facility] nRBC # <0.01 <0.01 10*3/uL 03/12/2025 8:57 AM EDT [employer] [facility] Blood Structure of peripheral vein / Unknown Venipuncture / Unknown 03/12/2025 8:35 AM EDT 03/12/2025 8:50 AM EDT us Ankita Paz DO LAB BLOOD ORDERABLES Final Result [facility] [address] [place] [address], [place] * HEART & VASCULAR - SCANNED (03/12/2025) Anatomical Region Laterality Modality Other us Onbase Scan Joy SCANNED PROCEDURES Final Resu lt documented in this encounter Visit Diagnoses Diagnosis Panic attack- Primary Panic disorder without agoraphobia documented in this encounter Administered Medications Inactive Administered Medications - up to 3 most recent administrations Medication Order MAR Action Action Date Dose Rate Site lactated Ringer's (LR) bolus 1,000 mL 1,000 mL, intravenous, Once, On Laya 03/12/25 at 1155, 1 dose New Bag/Syringe 03/12/2025 12:06 PM EDT 1,000 mL documented in this encounter Active and Recently Administered Medications Times are shown in EDT. Scheduled Medication Order 03/10/2025 03/11/2025 03/12/2025 lactated Ringer's (LR) bolus 1,000 mL (COMPLETED) 1,000 mL, intravenous, Once, On Laya 03/12/25 at 1155, 1 dose 1206 (New Bag/Syring e - Provider: Farnaz Milner RN) documented in this encounter Care Teams Wrapper Rewinder Relationship Specialty Start Date End Date Ref, Has No Pcp Or DO NOT EDIT THIS RECORD VIA PROVIDER ON THE FLY PCP - General Paper Sheeter 03/12/25 documented as of this encounter
--- NOTE | ~2025-03-17 | XR_ITS ---
CLINICAL HISTORY: sob 1 view chest x-ray Comparison: None provided Findings: The lungs are clear. Heart size is normal. No acute fracture. IMPRESSION: 1. No acute findings. This document has been electronically signed by: Lucia Levine MD on 03/17/2025 22:11:27
[2025-03-17 17:18] VITALS: BP 150/79; BP 150/96; PULSE 107; PULSE 110; RESP 18; TEMP 36.6; O2SAT 87; O2SAT 98; BMI 31.6
[2025-03-17 17:24] VITALS: O2SAT 96
[2025-03-17 17:48] VITALS: O2SAT 88
[2025-03-17 19:39] VITALS: BP 119/69; PULSE 94; RESP 20; O2SAT 98
--- NOTE | 2025-03-17 19:47 | PC.NURSE ---
Urine specimen collected and sent for analysis, results pending. Father of the patient has approached multiple staff members asking when the patient will be seen. Father stated all you guys do is talk, but no one is even coming to see my son or anything. This is ridiculous . Providers have also been approached and are aware of wait.
[2025-03-17 20:10] VITALS: O2SAT 95
[2025-03-17 20:11] LABS: Cannabinoid Screen Urine POSITIVE (Not Detect)
--- OUTSIDE RECORDS SUMMARY | 2025-03-17 20:18 | XMS_ITS | Clinical Summary ---
Author Organization [facility] Address [address] [place] [address] Care Team Providers Care Veneer Sorter Name Role Phone Ref, Has No Pcp Or Primary Care Provider Unavail able Allergies No known active allergies Encounters Date Type Department Care Team Description 03/12/2025 10:17 AM EDT - 03/12/2025 2:39 PM EDT Emergency [facility] Emergency Department [address] [place] [phone] Ankita Paz DO Panic attack (Primary Dx) Discharge Disposition: Home or Self Care (01) from Last 3 Months Social History Tobacco Use Types Packs/Day Years Used Date Smoking Tobacco: Never Assessed Sex and Gender Information Value Date Recorded Sex Assigned at Not on file Legal Sex Male 8:19 AM EDT Gender Identity Not on file Sexual Orientation Not on file Last Filed Vital Signs Vital Sign Reading Time Taken Comments Blood Pressure 115/79 03/12/2025 11:03 AM EDT Pulse 100 03/12/2025 11:03 AM EDT Temperature 36.3 C (97.4 F) 03/12/2025 8:24 AM EDT Respiratory Rate 22 03/12/2025 11:03 AM EDT Oxygen Saturation 99% 03/12/2025 11:03 AM EDT Inhaled Oxygen Concentration - - Weight - - Height - - Body Mass Index - - Plan of Treatment Health Maintenance Due Date Last Done Comments Cologuard 1979 Colon Cancer Screening 1979 Colonoscopy 1979 FOBT / Fit Test 1979 HIV Screening 1979 Hepatitis C Screening 1979 Sigmoidoscopy 1979 Varicella Vaccines (1 of 2 - 13+ 2-dose series) 11/26/1992 Hepatitis B Vaccines (2 of 3 - 19+ 3-dose series) 01/30/2013 01/02/2013 Alcohol/Substance Use Screening 05/21/2024 Depression Screening and Follow-Up 05/21/2024 Social Drivers of Health Annual Screening 05/21/2024 COVID-19 Vaccine (3 - 2024-2 6 season) 2025 09/08/2020, 08/17/2020 Influenza Vaccine (#1) 2025 01/31/2012 DTaP,Tdap,and Td Vaccines (4 - Td or Tdap) 05/10/2028 05/10/2018, 01/29/2016, 01/02/2013 RSV Vaccine (60+ years old a nd patients) (1 - 1-dose 75+ series) 11/26/2054 Pneumococcal Vaccine: Pediatric (0-5 Years) and At-Risk Patients (6-50 Years) Aged Out No longer eligible based on patient's age to complete this topic Procedures * Due to [place] [employer] law, this organization might not be sharing negative HIV tests. Procedure Name Priority Date/Time Associated Diagnosis Comments ECG 12-LEAD STAT 03/12/2025 8:49 AM EDT POCT GLUCOSE Routine 03/12/2025 8:41 AM EDT TROPONIN T HIGH SENSITIVITY STAT Add-on 03/12/2025 8:35 AM EDT CK STAT Add-on 03/12/2025 8:35 AM EDT BASIC METABOLIC PANEL STAT 03/12/2025 8:35 AM EDT CBC AUTO DIFFERENTIAL STAT 03/12/2025 8:35 AM EDT HEART & VASCULAR - SCANNED 03/12/2025 from Last 3 Months Results * Due to [place] [employer] law, this organization might not be sharing negative HIV tests. * ECG 12 lead (03/12/2025 8:49 AM EDT) Ventricular Rate EKG 100 BPM MUSE EKG Atrial Rate 100 BPM MUSE EKG MO Interval 140 ms MUSE EKG QRS Interval 82 ms MUSE EKG QT Interval 346 ms MUSE EKG QTC Interval 446 ms MUSE EKG P Straughn 65 degrees MUSE EKG R [place] 40 degrees MUSE EKG T Wave Straughn 46 degrees MUSE EKG 03/12/2025 8:49 AM EDT 03/17/2025 11:47 AM EDT Impressions MUSE EKG - 03/17/2025 11:47 AM EDT NORMAL SINUS RHYTHM POSSIBLE LEFT ATRIAL ENLARGEMENT BORDERLINE ECG NO PREVIOUS ECGS AVAILABLE Confirmed by Jesus Quinteros ([id number]) on 03/17/2025 11:47:11 AM Narrative Procedure Note O'Jesus Hardin MD - 03/17/2025 IMPRESSION: NORMAL SINUS RHYTHM POSSIBLE LEFT ATRIAL ENLARGEMENT BORDERLINE ECG NO PREVIOUS ECGS AVAILABLE Confirmed by Jesus Quinteros ([id number]) on 03/17/2025 11:47:11 AM us Ankita Paz DO ECG ORDERABLES Final Resu lt Performing Organization Address [facility] Co de Phone Number MUSE EKG * (ABNORMAL) POCT Glucose, interfaced (03/12/2025 8:41 AM EDT) [facility] Signature Glucose, POCT 110(H) 70 - 99 mg/dL 03/12/2025 8:44 AM EDT [facility] Comment: The hvac tech has not determined the efficacy of this test in Critically ill patients. [facility] defines Critically ill patients for the purpose [...] DEVICE Fin al Result Performing Organization Address City/[facility]/ZIP Co de Phone Number [facility] [address] [place] [address], [place] * Troponin T, High Sensitivity (03/12/2025 8:35 AM EDT) Pathologist [facility] Troponin T High Sensitivity 6 <=21 ng/L 03/12/2025 1:05 PM EDT [facility] Comment: Qe-Zjxswqtt-Q level of 52 ng/L or higher at [...] be evaluated in line with the 4th [place] Definition of AMI. Troponin baseline and serial [...] Paz DO LAB BLOOD ORDERABLES Final Result [facility]ITAL[facility]daizhijiaMTBiz[facility] [address] [place] [address], [place] * (ABNORMAL) CBC Auto Differential (03/12/2025 8:35 AM EDT) Pathologist [facility] WBC 10.6 3.8 - 10.8 10*3/uL 03/12/2025 8:57 AM EDT [facility] RBC 5.14 4.20 - 5.80 10*6/uL 03/12/2025 8:57 AM EDT [facility] Hemoglobin 16.3 13.2 - 17.1 g/dL 03/12/2025 8:57 AM EDT [facility] Hematocrit 44.9 38.5 - 50.0 % 03/12/2025 8:57 AM EDT [facility] MCV 87.4 80.0 - 100.0 fL 03/12/2025 8:57 AM EDT [facility] MCH 31.7 27.0 - 33.0 pg 03/12/2025 8:57 AM EDT [facility] MCHC 36.3(H) 32.0 - 36.0 g/dL 03/12/2025 8:57 AM EDT [facility] RDW 12.2 11.0 - 15.0 % 03/12/2025 8:57 AM EDT [facility] Platelets 215 140 - 400 10*3/uL 03/12/2025 8:57 AM EDT [facility] MPV 11.6 7.5 - 12.5 fL 03/12/2025 8:57 AM EDT [facility] Neutrophil % 86.1 % 03/12/2025 8:57 AM EDT [facility] Immature Grans % 0.2 0.0 - 0.9 % 03/12/2025 8:57 AM EDT [facility] Lymphocyte % 7.1 % 03/12/2025 8:57 AM EDT [facility] Monocyte % 6.5 % 03/12/2025 8:57 AM EDT [facility] Eosinophil % 0.0 % 03/12/2025 8:57 AM EDT [facility] Basophil % 0.1 % 03/12/2025 8:57 AM EDT [facility] Neutrophil # 9.15(H) 1.50 - 7.80 10*3/uL 03/12/2025 8:57 AM EDT [facility] Immature Grans # <0.03 <=0.03 10*3/uL 03/12/2025 8:57 AM EDT [facility]ITALMon[facility] CommerceSA[facility] Lymphocyte # 0.80(L) 0.85 - 3.90 10*3/uL 03/12/2025 8:57 AM EDT [facility] Monocyte # 0.70 0.20 - 0.95 10*3/uL 03/12/2025 8:57 AM EDT [facility] Eosinophil # <0.03 0.02 - 0.50 10*3/uL 03/12/2025 8:57 AM EDT [facility] Basophil # <0.03 0.00 - 0.20 10*3/uL 03/12/2025 8:57 AM EDT [facility] nRBC % 0.0 /100 WBCs 03/12/2025 8:57 AM EDT [facility] nRBC # <0.01 <0.01 10*3/uL 03/12/2025 8:57 AM EDT [facility] Blood Structure of peripheral vein / Unknown Venipuncture / Unknown 03/12/2025 8:35 AM EDT 03/12/2025 8:50 AM EDT us Ankita Paz DO LAB BLOOD ORDERABLES Final Result [facility]ITALMon[facility] CommerceNE [facility] [address] [place] [address], * (ABNORMAL) Creatine Kinase (03/12/2025 8:35 AM EDT) CK 529(H) 49 - 348 U/L 03/12/2025 11:27 AM EDT [facility] Blood Structure of peripheral vein / Unknown Venipuncture / Unknown 03/12/2025 8:35 AM EDT 03/12/2025 8:49 AM EDT us Ankita Paz DO LAB BLOOD ORDERABLES Final Result [facility] [address] [place] [address], [place] * (ABNORMAL) Basic Metabolic Panel (03/12/2025 8:35 AM EDT) NA 138 135 - 145 mmol/L 03/12/2025 9:18 AM EDT [facility] K 4.1 3.5 - 5.3 mmol/L 03/12/2025 9:18 AM EDT [facility] Cl 103 97 - 110 mmol/L 03/12/2025 9:18 AM EDT [facility] CO2 20(L) 22 - 32 mmol/L 03/12/2025 9:18 AM EDT [facility] BUN 17 7 - 23 mg/dL 03/12/2025 9:18 AM EDT [facility] Creatinine 0.64 0.60 - 1.30 mg/dL 03/12/2025 9:18 AM EDT [facility] Glucose 132(H) 65 - 99 mg/dL 03/12/2025 9:18 AM EDT [facility] Calcium 9.7 8.6 - 10.5 mg/dL 03/12/2025 9:18 AM EDT [facility] Anion Gap 15 5 - 15 03/12/2025 9:18 AM EDT [facility] eGFR >90 >=60 mL/min/1. 73m2 03/12/2025 9:18 AM EDT [facility] Comment:The estimated glomer ular [...] Paz DO LAB BLOOD ORDERABLES Final Result [facility] [address] [place] [address], [place] * HEART & VASCULAR - SCANNED (03/12/2025) Anatomical Region Laterality Modality Other us Onbase Scan Joy SCANNED PROCEDURES Final Resu lt from Last 3 Months Insurance [facility] [place] Care Teams Veneer Sorter Relationship Specialty Start Date End Date Ref, Has No Pcp Or DO NOT EDIT THIS RECORD VIA PROVIDER ON THE FLY PCP - General Veterinary Medicine Teacher 03/12/25
--- OUTSIDE RECORDS SUMMARY | 2025-03-17 20:18 | XMS_ITS | Data Portability ---
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 [email or web address] [address], [place], [address], 03/06/2023 16:19:05 03/07/2005/30/2022 CT, head, w/o contr ast No observ ation record ed. [facility] [address] [facility], [place], [address], 03/12/2023 13:53:20 03/07/2004/16/2022 CT, angio gram, head + neck, w/wo contr ast No observ ation record ed. [email or web address] Not Available 2022 11:52:10 Result Notes None recorded. Procedures Surgical History Date Name Laterality Status Provider Name and Address Organization Details Recorded Time 03/06/2023 DATA REVIEW completed STAN BARNETT PA-C [address] [place] [address], [phone], [facility] Neurology [facility] 03/06/2023 20:52:00 Imaging Results None recorded. Procedure Notes None recorded. Medical Equipment None Reported. Allergies Allergen ID Allergen Name Allergen Category Reaction Reaction Severity Criticality Documentation Date Start Date Code Code System Note Provider Name and Address Organization Details Recorded Time 3237 haloperid ol medicatio n Not available Not available Not available 03/06/2023 5093 RxNorm Stan heard [facility] Neurology [facility] 13:09:28 3238 propofol medicatio n Not available Not available Not available 03/06/2023 8782 RxNorm Stan Johnson [facility] Neurology [facility] 3 13:09:35 Medications Name Sig Start [...] Updated DateTime 03/06/2023 185.42 cm 27 kg/m2 99889.44 g 12 /min Stan [facility] 03/06/2023 13:09:18 Social History None recorded. Functional Status None recorded. Mental Status None recorded. Family History Relationship Description Onset Age of this Age Resolved Age Notes LastModified by Organization Details LastModified Time Mother Hypertensive disorder [email or web address] Not available 2022 13:10:34 Mother Neuropathy [email or web address] Not available 03/06/2023 13:10:47 Medical History Condition Response Claustrophobia N Hospitalizations N Head Trauma/Injury N High Blood Pressure or Hypertension Y Thyroid Problems N Lung Disease N COPD or emphysema N Brain Tumors N Depression N Encephalitis N Vitamin B12 deficiency N PTSD N Spine Problems N Heart Attack ([place]) N Obstructive Sleep Apnea N Alcoholism N Diabetes N Autoimmune disease N Bleeding Disorder N Arthritis N Tuberculosis N Developmental Problems N Cerebral Palsy N Neck Problems N Cancer N Back Problems N Stroke Y Asthma N Heartburn, acid reflux, GERD Y Vitamin D Deficiency N Epilepsy/Seizures N Bipolar Disorder N Sleep Disorder N Hepatitis N Aneurysm N Liver Disease N Heart Disease N Headaches N Fibromyalgia N Osteoporosis N High Cholesterol or Hyperlipidemia N Kidney Disease N Past Encounters Encounter ID Performer Location Encounter Start Date Encounter Closed Date Diagnosis/Indication Diagnosis SNOMED-CT Code Diagnosis ICD10 Code Diagnosis IMO Codes Diagnosis Note [id number] STAN BARNETT PA-C [facility] [address] [place] [address] [place] [address] 03/06/2023 12:55:32 03/08/2023 11:02:13 Degenerative lumbar spinal stenosis 276457093 M48.061 Disorder of neck 7282010 00 M50.022 Oral dyskinesia 12488225 1 G24.4 Essential tremor 1953683 09 G25.0 Health Concerns Section Related Observation LastModified by Organization Detai ls LastModified Time None Recorded Concern Status LastModified by Organization Details LastModified Time None Recorded Advance Directives Directive None Recorded Payers Insurance Date Sequence Insurance Name Policy Number Policy Patel Covered Member ID Patel Member ID Guarantor Name 03/12/2023 1 [employer] - DOS ON OR AFTER 2022 - [employer] (MEDICAID REPLACEMENT - HMO) Eugene Fountain [id number] Eugene Fountain Notes Date Note Type Note Provider Name and Address Organization Details Recorded Time 03/06/2023 text/html He presents for initial neurology evaluation for multiple concerns m y body is getting older and breaking down [...] also some nerve pain. 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 He saw Dr. 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
--- NOTE | 2025-03-17 20:40 | ECG_ITS ---
Test Reason : SOB Blood Pressure : */* mmHG Vent. Rate : 82 BPM Atrial Rate : 82 BPM P-R Int : 148 ms QRS Dur : 80 ms QT Int : 342 ms P-R-T Axes : 51 52 40 degrees QTcB Int : 399 ms Normal sinus rhythm Normal ECG When compared with ECG of 06-Sep-2022 11:49, No significant change was found Referred By: Sridevi Patel Electronically Signed By: KANIKA DUNBAR
--- NOTE | 2025-03-17 20:43 | PC.NURSE ---
HEYDI Patel at bedside. Per verbal order by Dr. Vázquez, low voltage technician was instructed to remove nasal cannula from the patient, vital signs stable. RN notified about removal of O2 tubing at this time. Care ongoing by this RN.
--- NOTE | 2025-03-17 20:58 | PC.NURSE ---
Patient initially refused EKG & labs with this RN and provider. However, after further discussion, pt agreed to remain for further evaluation/workup, causing delay in obtaining EKG upon being ordered. Labs, IV access, and EKG being obtained at this time. Care ongoing by this RN.
[2025-03-17 21:09] LABS: MANUAL DIFF FLAG NO
[2025-03-17 21:10] LABS: Hematocrit 42.7 % (42.0-52.0); Hemoglobin 14.8 g/dl (14.0-18.0); Imm Gran Abs Auto 0.03 X10*3/uL (0.00-0.03); Imm Gran Pct Auto 0.3 % (0.0-0.4); Lymphocytes Absolute Auto 2.3 X10*3/uL (1.2-4.9); Mean Corpuscular HGB Conc 34.7 g/dl (31.0-36.0); Mean Corpuscular Hemoglobin 32.0 pg (27.0-33.0); Mean Corpuscular Volume 92.2 fL (80.0-98.0); NRBC Abs Auto 0.000 X10*3/uL (0.0-0.012); NRBC Pct Auto 0.0 /100WBC (0.0-0.2); Platelet Count 177 X10*3/uL (160-400); Red Blood Count 4.63 X10*6/uL (4.60-5.80); White Blood Count 9.9 X10*3/uL (4.8-10.8)
[2025-03-17 21:26] LABS: Alanine Aminotransferase 57 U/L (0-40); Albumin Level 4.4 g/dL (3.5-5.0); Alkaline Phosphatase 64 U/L (39-117); Anion Gap 13 (12-20); Aspartate Amino Transferase 44 U/L (5-37); Blood Urea Nitrogen 14 mg/dL (9-16); Calcium 9.5 mg/dL (8.4-10.2); Carbon Dioxide 27 mmol/L (22-29); Chloride 107 mmol/L (96-108); Creatinine Clr Calc Pharmacy 114.9; Estimated Glomerular Filt Rate > 60; Magnesium 2.0 mg/dL (1.6-2.6); Potassium 5.1 mmol/L (3.3-5.1); Sodium 142 mmol/L (135-145); Total Protein 7.2 g/dL (6.5-8.0)
[2025-03-17 21:38] LABS: Troponin-I High Sensitivity < 2.7 ng/L (<3.5-35.0)
[2025-03-17 21:51] LABS: D Dimer High Sensitivity < 150 NG/ML
--- NOTE | 2025-03-17 21:51 | ED.GENADULT ---
HPI - General Adult General Chief complaint: Dyspnea Stated complaint: SOB 97%RA , 139/89 sinus tach, BH?, Allergic rxn? Time Seen by Provider: 03/17/25 20:15 Source: patient Limitations: no limitations History of Present Illness ED Provider: Sridevi Patel PA-C HPI narrative: 44-year-old male with a history of anxiety, chronic back pain, myelopathy, insomnia, who presents with hypertensive urgency. Patient was just released from a detox program secondary to overuse of Klonopin, he was there from February 25 through the . Tonight, patient was noted to be hypertensive, he is reporting systolic blood pressure of 230. Patient became anxious, felt short of breath. Denies use of illicit substances or alcohol, he states he is prescribed pregabalin and of benzodiazepine. Denies chest pain. Denies unilateral calf pain or swelling. Related Data Home Medications ?Medication ?Instructions ?Recorded ?Confirmed ergocalciferol (vitamin D2) 1,250 1,250 mcg PO QWEEK 09/26/24 11/19/24 mcg (50,000 unit) capsule lemborexant 10 mg tablet (Dayvigo) 10 mg PO DAILY 09/26/24 11/19/24 lisinopril 20 mg tablet 20 mg PO DAILY 09/26/24 11/19/24 mirtazapine 45 mg tablet 45 mg PO BEDTIME 09/26/24 11/19/24 pantoprazole 40 mg tablet,delayed 40 mg PO DAILY 09/26/24 11/19/24 release pregabalin 150 mg capsule 150 mg PO TID 09/26/24 11/19/24 Previous Rx's ?Medication ?Instructions ?Recorded clonazepam 2 mg tablet (Klonopin) 2 mg PO BEDTIME 30 days #30 tabs 11/18/24 etodolac 500 mg tablet 500 mg PO Q12H PRN pain #60 tabs 11/19/24 triazolam 0.25 mg tablet 0.5 mg (2 x 0.25 mg) PO BEDTIME 02/02/25 PRN sleep 30 days #60 tabs diclofenac sodium 75 mg 75 mg PO BID PRN pain 30 days #60 02/11/25 tablet,delayed release tabs tizanidine 4 mg tablet 4 mg PO TID PRN for muscle spasm 02/16/25 30 days #90 ea Allergies Allergy/AdvReac Type Severity Reaction Status Date / Time haloperidol (From HALDOL) Allergy Severe RESP Verified 03/17/25 17:24 DISTRESS Phenothiazines Allergy Unknown EPS Verified 03/17/25 17:24 (PHENOTHIAZINES) propofol Allergy Unknown Verified 03/17/25 17:24 Review of Systems Review of Systems: Yes all other systems are reviewed and are negative Constitutional: Constitutional: Denies fatigue and Denies fever(s) Cardiovascular: Cardiovascular: Denies chest pain, Denies leg edema and Reports dyspnea Respiratory: Respiratory: Denies cough and Reports dyspnea Psychiatric: Psychiatric: Reports anxiety Endocrine: Endocrine: Denies fatigue [facility] Past Medical History Attestation statement: The following information was validated with the patient. Medical History Anxiety Myelopathy Cervical cord compression with myelopathy Insomnia Social History Social History Alcohol intake: never Smoked in Last 30 Days: No Use of substances other than those prescribed or required for medical reasons: Yes Substance Use Type: Prescription Drugs Advance Directives: No Advance Directives Information Provided: No Physical Exam ED Vital Signs: Vital Signs - 24 hr 03/17/25 17:18 03/17/25 17:24 03/17/25 17:48 Temperature 97.9 F Pulse Rate 107 H Respiratory Rate 18 Blood Pressure 150/79 H Pulse Oximetry 87 L 96 88 L Oxygen Delivery Method Room Air Room Air Room Air 03/17/25 19:39 03/17/25 20:10 03/17/25 22:07 Temperature 97.8 F Pulse Rate 94 80 Respiratory Rate 20 20 Blood Pressure 119/69 119/71 Pulse Oximetry 98 95 98 Oxygen Delivery Method Room Air Room Air Room Air BMI result Body Mass Index 31.6 Const Other: Alert Orientation/consciousness: patient oriented x3 Eyes Other: Pinpoint Resp Other: Lungs clear to auscultation Effort & Inspection: normal respiratory effort Cardio Other: Normal peripheral perfusion Skin Other: Warm dry no rash Neuro General: patient oriented x3, gait normal, no focal motor deficits and CN's II-XI intact bilaterally Psych Other: Cooperative Medications Administered Discontinued Medications Generic Name Dose Route Start Last Admin Trade Name Freq PRN Reason Stop Dose Admin Sodium Chloride 1,000 mls @ 999 mls/hr 03/17/25 21:00 03/17/25 22:07 Ns IV 03/17/25 22:00 Infused .Q1H1M TWYLA Infusion Medical Decision Making Medical Decision Making [facility] Narrative: 44-year-old male with a history of hypertension, anxiety, chronic back pain, myelopathy, insomnia, who presents with hypertensive urgency. Patient was just released from a detox program secondary to overuse of Klonopin, he was there from February 25 through the . Tonight, patient was noted to be hypertensive, he is reporting systolic blood pressure of 230. Patient became anxious, felt short of breath. Denies use of illicit substances or alcohol, he states he is prescribed pregabalin and of benzodiazepine. Denies chest pain. Denies unilateral calf pain or swelling. Problem: Anxiety, chronic pain, hypertension History: Per patient I have considered the following differential diagnoses: Hypertensive urgency, ACS, PE, panic attack, drug/alcohol intoxication Plan: Questionable whether the patient was hypoxic, when he was triaged, he was having periods of somnolence, he would drift off while speaking with him. While awake his oxygen is 96% on room air. He dropped to 88% when he became drowsy. It is suspect that he may be taking too much of his prescribed benzodiazepine, and/or other illicit substances. Drug screen ordered from triage, it is also positive for marijuana in addition to benzodiazepine, I will be adding on an ethanol level. The patient is not hypertensive here I suspect that the reading at home was inaccurate. We will add basic labs, troponin EKG and chest x-ray. I am also adding on a dimer, it is unclear whether he is truly hypoxic or not, his presentation is odd, and he has a poor historian. Objectively, he has no signs symptoms concerning for DVT on exam. He is also intermittently tachycardic, giving IV fluid. I suspect he is anxious. I have independently reviewed the following tests: Labs: No leukocytosis, not anemic, troponin less than 2.7, dimer less than 150 EKG: Normal sinus rhythm, rate 82, no ischemic changes no ectopy QTC 399 Chest x-ray:Findings: The lungs are clear. Heart size is normal. No acute fracture. IMPRESSION: 1. No acute findings. Differential Diagnosis Differential Diagnoses: The differential diagnosis associated with the presentation includes See medical decision-making Admission/Observation Consideration of admission/observation: Escalation of care including admission/observation considered Not applicable Lab Data MDM Lab Attestation statement: I reviewed the patient's lab results. 03/17/25 21:02 03/17/25 21:02 Labs: Lab Results 03/17/25 03/17/25 Range/Units 19:38 21:02 WBC 9.9 (4.8-10.8) X10*3/uL RBC 4.63 (4.60-5.80) X10*6/uL Hgb 14.8 (14.0-18.0) g/dl Hct 42.7 (42.0-52.0) % MCV 92.2 (80.0-98.0) fL MCH 32.0 (27.0-33.0) pg MCHC 34.7 (31.0-36.0) g/dl RDW 12.8 (11.0-16.0) % Plt Count 177 (160-400) X10*3/uL MPV 11.1 (9.4-12.4) fL Immature Gran % (Auto) 0.3 (0.0-0.4) % Neut % (Auto) 63.4 (45-73) % Lymph % (Auto) 22.9 (20-40) % [place] % (Auto) 7.2 (2-11) % Eos % (Auto) 5.7 H (0-4) % Baso % (Auto) 0.5 (0-2) % Lymph # (Auto) 2.3 (1.2-4.9) X10*3/uL [place] # (Auto) 0.7 (0.1-1.2) X10*3/uL Eos # (Auto) 0.6 H (0.0-0.4) X10*3/uL Baso # (Auto) 0.1 (0.0-0.2) X10*3/uL Abs Immat Gran (auto) 0.03 (0.00-0.03) X10*3/uL Absolute Neuts (auto) 6.3 (2.0-8.3) x10*3/uL Absolute Nucleated RBC 0.000 (0.0-0.012) X10*3/uL Nucleated RBC % (auto) 0.0 (0.0-0.2) /100WBC D-Dimer High Sensitivty < 150 NG/ML Sodium 142 (135-145) mmol/L Potassium 5.1 (3.3-5.1) mmol/L Chloride 107 (96-108) mmol/L Carbon Dioxide 27 (22-29) mmol/L Anion Gap 13 (12-20) BUN 14 (9-16) mg/dL Creatinine 1.02 (0.5-1.4) mg/dL Estim Creat Clear Calc 114.9 Estimated GFR > 60 Random Glucose 93 (60-115) mg/dL Calcium 9.5 D (8.4-10.2) mg/dL Magnesium 2.0 (1.6-2.6) mg/dL Total Bilirubin 0.3 (0.0-1.0) mg/dL AST 44 H (5-37) U/L ALT 57 H (0-40) U/L Alkaline Phosphatase 64 (39-117) U/L Troponin I High Sens < 2.7 (<3.5-35.0) ng/L Total Protein 7.2 (6.5-8.0) g/dL Albumin 4.4 (3.5-5.0) g/dL Urine Opiates Screen Not Detected (Not Detect) Ur Buprenorphine Scrn Not Detected (Not Detect) ng/mL Ur Oxycodone Screen Not Detected (Not Detect) ng/mL Urine Methadone Screen Not Detected (Not Detect) ng/mL Urine Fentanyl Screen Not Detected (Not Detect) Ur Barbiturates Screen Not Detected (Not Detect) Ur Phencyclidine Scrn Not Detected (Not Detect) Ur Amphetamines Screen Not Detected (Not Detect) U Benzodiazepines Scrn POSITIVE H (Not Detect) Urine Cocaine Screen Not Detected (Not Detect) U Marijuana (THC) Screen POSITIVE H (Not Detect) Ethyl Alcohol < 10 mg/dL Independent Interpretation I performed an independent interpretation of an: EKG Radiology Impression Discussion of test interpretation with radiology: I have reviewed the radiologist's reading. Discharge Plan Discharge Clinical Impression: Palpitations Patient Disposition: Home, Self-Care Instructions: Heart Palpitations (ED) Additional Instructions: All of your screening labs including a cardiac enzymes were normal. There were no concerning changes on the EKG in the chest x-ray is clear. In regard to the palpitations, see home care instructions. Avoid stimulants such as caffeine, cocaine and marijuana can often times increase your heart rate. Be sure to maintain proper hydration, consumed 96 oz of water a day. You should also follow up with your primary care provider and request a Holter monitor trial. This monitor we will detect an abnormal rhythm of your heart. Call tomorrow to schedule an appointment. Prescriptions: No Action clonazepam [Klonopin] 2 mg tablet 2 mg PO BEDTIME 30 Days Qty: 30 2RF triazolam 0.25 mg tablet 0.5 mg PO BEDTIME PRN (Reason: sleep) 30 Days Qty: 60 2RF diclofenac sodium 75 mg tablet,delayed release (DR/EC) 75 mg PO BID PRN (Reason: pain) 30 Days Qty: 60 1RF tizanidine 4 mg tablet 4 mg PO TID PRN (Reason: for muscle spasm) 30 Days Qty: 90 2RF pregabalin 150 mg capsule 150 mg PO TID lisinopril 20 mg tablet 20 mg PO DAILY ergocalciferol (vitamin D2) 1,250 mcg (50,000 unit) capsule 1,250 mcg PO QWEEK mirtazapine 45 mg tablet 45 mg PO BEDTIME pantoprazole 40 mg tablet,delayed release (DR/EC) 40 mg PO DAILY Dayvigo 10 mg tablet 10 mg PO DAILY etodolac 500 mg tablet 500 mg PO Q12H PRN (Reason: pain) Qty: 60 0RF Interventions: ED Discharge Assessment Last Done: 03/17/25 22:07 Discharge Date/Time: 03/17/25 22:10 Print Language: French
--- NOTE | 2025-03-17 22:05 | PC.NURSE ---
pt self removed IV
[2025-03-17 22:07] VITALS: BP 119/71; PULSE 80; RESP 20; TEMP 36.6; O2SAT 98
== END 2025-03-17 22:10 | disposition home or self-care (01) ==
PROVIDERS: Physician Assistant Medical; Emergency Provider Emergency Medicine; PCP Pediatrics
DX: R00.2 Palpitations (principal); I16.0 Hypertensive urgency; G89.29 Other chronic pain; G47.00 Insomnia, unspecified; Z79.899 Other long term (current) drug therapy; Z86.69 Personal history of other diseases of the nervous system and sense organs
CPT/HCPCS: 36415; 71045; 80053; 80307; 83735; 84484; 85025; 85379; 93005; 96360; 99284

== ENCOUNTER → 2025-03-17 20:40 | Outpatient (BNV) | payer OTHER, SELFPAY | PROVIDERS: Emergency Provider Emergency Medicine; PCP Pediatrics; Visit Provider Student in an Organized Health Care Education/Training Program | DX: R06.02 Shortness of breath (principal) | CPT/HCPCS: 71045 ==

== ENCOUNTER → 2025-03-17 20:40 | Outpatient (BNV) | payer OTHER, SELFPAY | PROVIDERS: Emergency Provider Emergency Medicine; PCP Pediatrics; Visit Provider Internal Medicine | DX: R06.02 Shortness of breath (principal) | CPT/HCPCS: 93010 ==